=== PATIENT | female | born 1950 ===

== ENCOUNTER 2016-11-29 10:49 | Observation (INO) | payer MEDICARE, OTHER ==
[2016-11-29 10:50] VITALS: BMI 30.4
[2016-11-29] MEDS ORDERED: Nitroglycerin 50mg in D5W 50 MG/250 ML BOTTLE IV STA (11:06)
--- NOTE | 2016-11-29 11:06 | C.PDOC ---
History Of Present Illness <Abbey Rizvi - Last Filed: 11/29/16 13:16> <Addie Anaya - Last Filed: 11/30/16 13:55> 66-year-old female, PMHx includes ESRD, last HD 11/27, presents to the emergency department with complaints of respiratory distress. As per EMS, patient was found to be in respiratory distress w/ rales. Patient s/p CPAP, NG paste and NG sprays, now appears much better. Patient states she feels better. Son states "normal amount was removed" during last dialysis. Patient has intermittent shortness of breath, "only in the morning." Patient saw PMD for same. Started ZPAK x1 dose yesterday, and increased dose of Isosorbide. This morning w/ shortness of breath that was worse than before. No fever. LIMITED DUE TO CLIN COND PER EMS, PT FOUND RESP DISTRESS, +RALES. S/P CPAP, NG PASTE AND NG SPRAYS NOW APPEARS MUCH BETTER. PS FEELS BETTER. HO ESRD, LAST HD 11/27, SON STATES "NORMAL AMOUNT WAS REMOVED". HAS BEEN W INTERMIT SOB "ONLY IN MORNING", SAW PMD FOR SAME. STARTED ZPAK X 1 DOSE YEST, INCR DOSE ISOSORBIDE. THIS MORNING W WORSE THAN BEFORE SOB. NO FEVER. ROS LIMITED EXAM MOD DIST NONTOXIC BIPAP IN PROGRESS LUNGS B/L RALES W TACHYPNEA, UNABLE TO SPEAK DUE OT SOB. CV RRR WARM DRY NEURO AO3, APPROPRIATE, INTERACTIVE. (Abbey Rizvi) History Per: EMS, Family History/Exam Limitations: clinical condition Current Symptoms Are (Timing): Still Present <Abbey Rizvi - Last Filed: 11/29/16 13:16> <Addie Anaya - Last Filed: 11/30/16 13:55> Chief Complaint (Nursing): Respiratory Distress Past Medical History Reviewed: Historical Data, Nursing Documentation, Vital Signs - Medical History PMH: HTN, Hypercholesterolemia, End Stage Renal Disease Family History: States: Unknown Family Hx - Social History Hx Tobacco Use: No Hx Alcohol Use: No Hx Substance Use: No - Immunization History Hx Tetanus Toxoid Vaccination: Yes Hx Influenza Vaccination: Yes Hx Pneumococcal Vaccination: Yes <Abbey Rizvi - Last Filed: 11/29/16 13:16> Review Of Systems Review Of Systems: ROS cannot be obtained secondary to pt's inabilty to answer questions. (respiratory distress) <Abbey Rizvi - Last Filed: 11/29/16 13:16> Physical Exam - Physical Exam Appears: Non-toxic, Other (MOD DIST: BIPAP IN PROGRESS) Skin: Warm, Dry, No Rash Head: Atraumatic, Normacephalic Eye(s): bilateral: Normal Inspection Nose: Normal Oral Mucosa: Moist Lips: Normal Appearing Neck: Normal ROM Cardiovascular: Rhythm Regular, No Murmur Respiratory: Rales ((+) tachypnea), Other (unable to speak due to shortness of breath) Extremity: Normal ROM Neurological/Psych: Oriented x3 (appropriate, interactive) <Abbey Rizvi - Last Filed: 11/29/16 13:16> ED Course And Treatment - Laboratory Results Result Diagrams: 11/29/16 11:10 11/29/16 11:10 ECG: Interpreted By [place] ECG Rhythm: Sinus Rhythm ECG Interpretation: Normal, No Acute Changes Rate From EC O2 Sat by Pulse Oximetry: 100 Pulse Ox Interpretation: Normal - Radiology CXR: Interpreted by Me CXR Interpretation: Yes: Other (CHF) <Abbey Rizvi - Last Filed: 11/29/16 13:16> - Laboratory Results Result Diagrams: 11/29/16 11:10 11/29/16 11:10 <Addie Anaya - Last Filed: 11/30/16 13:55> Progress - Data Reviewed Data Reviewed: Lab, Diagnostic imaging, EKG, Old records - Critical Care Citical Care: Excluding Proc Time Critical Care Time: 120 minutes - Continuity of Care Discussed patient case with:: Patient, Family-HIPPA compliant, PMD <Abbey Rizvi - Last Filed: 11/29/16 13:16> <Addie Anaya - Last Filed: 11/30/16 13:55> - Re-Evaluation Re-evaluation Note: 11/29/16 12:26 PT MUCH IMPROVED. TOLERATING OFF TRIDAL DRIP D/W DR Donnie BARTLETT , WILL ARRANGE FOR EMERGENT HD (Abeby Rizvi) Disposition Counseled Patient/Family Regarding: Studies Performed, Diagnosis - Disposition Disposition Time: 12:28 - POA Present On Arrival: None <Abbey Rizvi - Last Filed: 11/29/16 13:16> <Addie Anaya - Last Filed: 11/30/16 13:55> - Disposition Disposition: HOSPITALIZED Condition: STABLE - Clinical Impression Clinical Impression: CHF (congestive heart failure), ESRD (end stage renal disease) on dialysis, Respiratory distress - Scribe Statement The provider has reviewed the documentation as recorded by the Scribe <Abbey Rizvi - Last Filed: 11/29/16 13:16> <Addie Anaya - Last Filed: 11/30/16 13:55> - Scribe Statement Biju Alvarez All medical record entries made by the Scribe were at my direction and personally dictated by me. I have reviewed the chart and agree that the record accurately reflects my personal performance of the history, physical exam, medical decision making, and the department course for this patient. I have also personally directed, reviewed, and agree with the discharge instructions and disposition. (Abbey Rizvi) Decision To Admit - Pt Status Changed To: Hospital Disposition Of: Observation - . Bed Request Type: Telemetry Admitting Physician: Ed Bartlett <Abbey Rizvi - Last Filed: 11/29/16 13:16> <Addie Anaya - Last Filed: 11/30/16 13:55> - . Patient Diagnosis: CHF (congestive heart failure), ESRD (end stage renal disease) on dialysis, Respiratory distress Addendum <Abbey Rizvi - Last Filed: 11/29/16 13:16> <Addie Anaya - Last Filed: 11/30/16 13:55> Addendum: 11/30/16 13:54 CXR was placed to PA review folder. Accession No. : [id number] Patient Name / ID : ROSALINO OSEGUERA / [id number] Exam Date : 11/29/2016 11:05:26 ( Approved ) Study Comment : Sex / Age : F / 66Y Creator : Rubén Martell MD Dictator : Rubén Martell MD Analysis Internship : Towel Folder : Rubén Martell MD Approver2 : Report Date : 11/29/2016 12:10:06 My Comment : PROCEDURE: CHEST RADIOGRAPH, 1 VIEW HISTORY: Shortness of breath COMPARISON: 02/19/2016 FINDINGS: LUNGS: Moderate to severe venous congestion with prominent bibasilar airspace opacities and small to moderate loculated right pleural effusion. PLEURA: As above. CARDIOVASCULAR: Cardiomegaly. OSSEOUS STRUCTURES: No significant abnormalities. VISUALIZED UPPER ABDOMEN: Normal. OTHER FINDINGS: Question external tubing projecting over the distal left clavicle. IMPRESSION: Moderate to severe venous congestion with prominent bibasilar airspace opacities and small to moderate loculated right pleural effusion. Patient was admitted to the hospital. No actions required from ED at this point. (Addie Anaya)
[2016-11-29 11:28] LABS: VENOUS BLOOD GAS BASE EXCESS 8.2 mmol/L (0.0-2.0); VENOUS BLOOD GAS PCO2 62 mmHg (40-60); VENOUS BLOOD PH 7.37 (7.32-7.43)
[2016-11-29 11:34] LABS: EOS # 0.1 K/uL (0.0-0.7); HEMATOCRIT 30.2 % (34.0-47.0); LYMPH # 0.7 K/uL (1.0-4.3); MEAN CELL VOLUME 85.2 fL (81.0-99.0); MONO # 0.4 K/uL (0.0-0.8); POTASSIUM 4.4 mmol/L (3.6-5.2)
[2016-11-29 11:37] LABS: ALB/GLOB RATIO 1.2 (1.0-2.1); BILIRUBIN,TOTAL 1.4 mg/dL (0.2-1.3); TOTAL PROTEIN 7.4 g/dL (6.3-8.3)
[2016-11-29 11:42] LABS: BASO % 0.3 % (0.0-2.0); EOS % 1.6 % (0.0-4.0); LYMPH % 7.8 % (20.0-40.0); MEAN CORPUSCULAR HEMOGLOBIN 27.3 pg (27.0-31.0); MEAN PLATELET VOLUME 9.5 fL (7.2-11.7); MONO % 4.1 % (0.0-10.0); RED CELL DISTRIBUTION WIDTH 18.4 % (11.5-14.5); WHITE BLOOD COUNT 8.9 K/uL (4.8-10.8)
[2016-11-29 11:49] LABS: TROPONIN I 0.049 ng/mL (0.00-0.120)
[2016-11-29 11:50] LABS: PLATELET COUNT 123 K/uL (130-400)
[2016-11-29 12:06] LABS: NEUTROPHIL 89 % (50-75); TOTAL CELLS COUNTED 100
[2016-11-29 12:07] LABS: LARGE PLATELETS PRESENT
[2016-11-29] MEDS ORDERED: Nitroglycerin 50mg in D5W 0 MG/0 ML BOTTLE IV ONE (12:10)
--- NOTE | 2016-11-29 12:12 | RAD ---
PROCEDURE: CHEST RADIOGRAPH, 1 VIEW HISTORY: Shortness of breath COMPARISON: 02/19/2016 FINDINGS: LUNGS: Moderate to severe venous congestion with prominent bibasilar airspace opacities and small to moderate loculated right pleural effusion. PLEURA: As above. CARDIOVASCULAR: Cardiomegaly. OSSEOUS STRUCTURES: No significant abnormalities. VISUALIZED UPPER ABDOMEN: Normal. OTHER FINDINGS: Question external tubing projecting over the distal left clavicle. IMPRESSION: Moderate to severe venous congestion with prominent bibasilar airspace opacities and small to moderate loculated right pleural effusion.
[2016-11-29] MEDS ORDERED: Albuterol-Ipratrop 3 mg / 0.5 (3 ml) UD ONE (16:13)
[2016-11-29] MEDS ORDERED: Albuterol-Ipratrop 3 mg / 0.5 (3 ml) UD INH STA (16:13)
[2016-11-29] MEDS ORDERED: Moxifloxacin IV 400mg/250ml NS 400 MG/250 ML BAG IVPB STA (17:28)
--- NOTE | 2016-11-29 17:32 | CP.PCM.HP ---
History of Present Illness - History of Present Illness History of Present Illness: 66-year-old female patient with a past medical history of hypertension, hypercholesterolemia, end-stage renal disease, last HD on 11/27, who presented to the ED with complaint of respiratory status. As per EMS, patient was found to be in respiratory distress with rales. Patient S/P CPAP, NG placed and NG sprays, now appear much better. Patient states she feels better. Son states normal amount was removed during last dialysis. Patient has intermittent shortness of breath, "only in the morning". Patient saw PMD for same, started ZPAK x1 dose yesterday, and increased dose of isosorbide. This morning with shortness of breath that was worse than before. Denies fever Present on Admission - Present on Admission Any Indicators Present on Admission: No Past Patient History - Infectious Disease Hx of Infectious Diseases: None - Past Medical History & Family History Past Medical History?: Yes - Past Social History Smoking Status: Never Smoked - CARDIAC Hx Hypercholesterolemia: Yes Hx Hypertension: Yes - RENAL Type of Dialysis Access: left AV shunt Date of Last Dialysis Treatment: 11/27/16 Hx Renal Failure: Yes (ESRD on HD) - HEMATOLOGICAL/ONCOLOGICAL Hx Blood Transfusions: Yes - MUSCULOSKELETAL/RHEUMATOLOGICAL Hx Falls: Yes (unstable) - GENITOURINARY/GYNECOLOGICAL Other/Comment: hd - PSYCHIATRIC Hx Substance Use: No - SURGICAL HISTORY Hx Surgeries: Yes Hx Kidney Transplant: Yes Other/Comment: KIDNEY TRANSPLANT. LEFT ARM AV SHUNT - ANESTHESIA Hx Anesthesia: Yes Hx Anesthesia Reactions: No Hx Malignant Hyperthermia: No Meds Home Medications: Home Medication List Medication Instructions Recorded Confirmed Type Furosemide [Lasix] 80 mg PO DAILY #30 tab 12/01/16 Rx hydrALAZINE [Apresoline] 25 mg PO Q8 #90 tab 12/01/16 Rx Allergies/Adverse Reactions: Allergies Allergy/AdvReac Type Severity Reaction Status Date / Time Penicillins Allergy Severe RASH Verified 02/19/16 01:11 Physical Exam - Constitutional Appears: Well - Head Exam Head Exam: ATRAUMATIC, NORMAL INSPECTION, NORMOCEPHALIC - Eye Exam Eye Exam: EOMI, Normal appearance, PERRL Pupil Exam: NORMAL ACCOMODATION, PERRL - ENT Exam ENT Exam: Mucous Membranes Moist, Normal Exam - Neck Exam Neck exam: Positive for: Normal Inspection - Respiratory Exam Respiratory Exam: Decreased Breath Sounds - Cardiovascular Exam Cardiovascular Exam: REGULAR RHYTHM, +S1, +S2 - GI/Abdominal Exam GI & Abdominal Exam: Diminished Bowel Sounds, Soft - Rectal Exam Rectal Exam: Deferred Results - Vital Signs Recent Vital Signs: Last Vital Signs Temp 97.8 F 11/29/16 15:00 Pulse 64 11/29/16 17:04 Resp 17 11/29/16 15:00 BP 142/77 11/29/16 17:04 Pulse Ox 100 11/29/16 17:04 - Labs Result Diagrams: 11/29/16 11:10 11/29/16 11:10 Assessment & Plan (1) CHF (congestive heart failure) Status: Acute Comment: acute on chronic heartfailure (2) ESRD (end stage renal disease) on dialysis Status: Acute (3) Respiratory distress Status: Acute (4) Diabetes Status: Acute (5) End stage renal disease Status: Acute (6) HTN (hypertension) Status: Acute (7) Nausea & vomiting Status: Acute (8) Pneumonia Status: Acute (9) Pulmonary edema Status: Acute (10) Respiratory failure Status: Acute - Assessment and Plan (Free Text) Plan: Consult pulmonology Chest x-ray shows moderate to severe venous congestion with prominent bibasilar airspace opacities Norvasc Coreg Sensipar Pepcid Mucinex Imdur
[2016-11-29] MEDS: guaiFENesin 600 mg ER Tab PO SCH ×2 (18:25→23:46)
[2016-11-30] MEDS: guaiFENesin 600 mg ER Tab PO SCH ×3 (05:32→17:57)
--- NOTE | 2016-11-30 13:55 | CON ---
DATE: 11/30/2016 REQUESTING PHYSICIAN: Dr. Rico Bartlett. HISTORY OF PRESENT ILLNESS: This is a 66-year-old [place] female with history of end-stage renal dis ease, on hemodialysis 3 times a week, was found to be in respiratory distress, came to the Emergency Room, where she was found to be in pulmonary edema. The patient was subsequently admitted. Denies a ny chest pains. The patient has a longstanding history of hypertension and chronic kidney disease. About more than 15 years ago, she had a renal transplant done which lasted for about 10 years and sub sequently had failed. For past 5-7 years, she is on hemodialysis. MEDICATIONS AT HOME: Include Coreg 3.125 twice a day, Imdur, Norvasc 10 mg and Sensipar. PERSONAL HISTORY: Does not smoke, does not drink. ALLERGIES: PENICILLIN. FAMILY HISTORY: Positive for hypertension. PAST MEDICAL HISTORY: History of renal transplant. REVIEW OF SYSTEMS: Generalized weakness, is essentially home-ridden, but walks around with a lot of support. No fever. No chills. Nonproductive cough, wheezing. Poor vision in both eyes. No hemopt ysis. Shortness of breath at rest. No chest pains. Sleeps on 2-3 pillows. Occasional ankle edema. No abdominal pain. No hematemesis. No melena. Joint pains including hip and knees. No history o f TIAs or CVAs. No history of depression. No hematuria. PHYSICAL EXAMINATION: GENERAL: Shows a middle-aged female, looking older than her stated age, in mild respiratory distress . VITAL SIGNS: Her blood pressure is 150/78, heart rate of 66 and regular, respiratory rate of 24, tem perature of 98.6, O2 sat is 97% on 2 L by nasal cannula. HEAD: Normocephalic. EYES: No pallor, no icterus. MOUTH: Partial upper and lower dentures. NECK: Supple. thyroid enlargement is noted. No carotid bruits. LUNGS: Bibasilar rales and diffuse inspiratory and expiratory wheeze. HEART: Sounds are distant, but no definite gallops or murmurs. ABDOMEN: Soft, nontender. Healed surgical scar of previous renal transplant is noted. Abdomen is soft otherwise. EXTREMITIES: No cyanosis, clubbing or edema. Distal pulses are intact. NEUROLOGIC: Awake, alert, oriented x 3. PSYCHIATRIC: Appears mildly depressed. LABORATORY DATA: BUN is 37, creatinine is 6.2. CBC is acceptable. Chest x-ray shows congestive heart failure. EKG sinus rhythm, otherwise unremarkable. ASSESSMENT: This is a 66-year-old female with history of chronic kidney disease, status post renal t ransplant and hypertension, who has presented with congestive heart failure. PLAN: Continue with aggressive hemodialysis. We will repeat echocardiogram with Doppler studies to evaluate for any occult valvular heart disease and check LV size and function. Care of plan was expl ained to the patient. I thank you. We will follow as needed. James Claros MD cc: [id number] TT: 11/30/2016 13:54:28 Confirmation # [id number] Dictation # [id number] rachel
--- NOTE | 2016-11-30 14:00 | CARD ---
APPROVED REPORT EKG Measurement Heart [id number] <Conclusion> Normal sinus rhythm Normal ECG
--- NOTE | 2016-11-30 14:10 | CP.PCM.CON ---
Past Patient History - Infectious Disease Hx of Infectious Diseases: None - Past Medical History & Family History Past Medical History?: Yes - Past Social History Smoking Status: Never Smoked - CARDIAC Hx Cardiac Disorders: Yes Hx Hypercholesterolemia: Yes Hx Hypertension: Yes - PULMONARY Hx Respiratory Disorders: No - NEUROLOGICAL Hx Neurological Disorder: No - HEENT Hx HEENT Problems: No - RENAL Type of Dialysis Access: left AV shunt Date of Last Dialysis Treatment: 11/27/16 Hx Renal Failure: Yes (ESRD on HD) - ENDOCRINE/METABOLIC Hx Endocrine Disorders: No - HEMATOLOGICAL/ONCOLOGICAL Hx Blood Transfusions: Yes - INTEGUMENTARY Hx Dermatological Problems: No - MUSCULOSKELETAL/RHEUMATOLOGICAL Hx Musculoskeletal Disorders: Yes Hx Falls: Yes (unstable) - GASTROINTESTINAL Hx Gastrointestinal Disorders: No - GENITOURINARY/GYNECOLOGICAL Hx Genitourinary Disorders: No Other/Comment: hd - PSYCHIATRIC Hx Psychophysiologic Disorder: No Hx Substance Use: No - SURGICAL HISTORY Hx Surgeries: Yes Hx Kidney Transplant: Yes Other/Comment: KIDNEY TRANSPLANT. LEFT ARM AV SHUNT - ANESTHESIA Hx Anesthesia: Yes Hx Anesthesia Reactions: No Hx Malignant Hyperthermia: No Meds Allergies/Adverse Reactions: Allergies Allergy/AdvReac Type Severity Reaction Status Date / Time Penicillins Allergy Severe RASH Verified 02/19/16 01:11 - Medications Medications: Current Medications Amlodipine Besylate (Norvasc) 10 mg PO DAILY [facility] Last Admin: 11/30/16 09:18 Dose: 10 mg Carvedilol (Coreg) 3.125 mg PO BID [facility] Last Admin: 11/30/16 09:18 Dose: 3.125 mg Cinacalcet (Sensipar) 60 mg PO DAILY [facility] Last Admin: 11/30/16 09:18 Dose: 60 mg Famotidine (Pepcid) 20 mg PO DAILY [facility] Last Admin: 11/30/16 09:18 Dose: 20 mg Guaifenesin (Mucinex La) 600 mg PO Q6 [facility] Last Admin: 11/30/16 11:36 Dose: 600 mg Isosorbide Mononitrate (Imdur) 120 mg PO DAILY [facility] Last Admin: 11/30/16 09:18 Dose: 120 mg Sevelamer Carbonate (Renvela) 800 mg PO BID [facility] Last Admin: 11/30/16 09:18 Dose: 800 mg Results - Vital Signs Recent Vital Signs: Last Vital Signs Temp 98 F 11/30/16 13:40 Pulse 68 11/30/16 13:40 Resp 18 11/30/16 13:40 BP 120/70 11/30/16 13:40 Pulse Ox 97 11/30/16 07:25 - Labs Result Diagrams: 11/29/16 11:10 11/29/16 11:10
--- NOTE | 2016-11-30 18:21 | CP.PCM.PN ---
Subjective - Date & Time of Evaluation Date of Evaluation: 11/30/16 Time of Evaluation: 12:00 - Subjective Subjective: clinically same Objective - Vital Signs/Intake and Output Vital Signs (last 24 hours): Temp Pulse Resp BP Pulse Ox 98 F 62 96 H 123/65 96 11/30/16 13:45 11/30/16 16:45 11/30/16 16:45 11/30/16 16:45 11/30/16 13:45 Intake and Output: 11/30/16 11/30/16 06:59 18:59 Intake Total 110 Balance 110 - Medications Medications: Current Medications Amlodipine Besylate (Norvasc) 10 mg PO DAILY [facility] Last Admin: 11/30/16 09:18 Dose: 10 mg Carvedilol (Coreg) 3.125 mg PO BID [facility] Last Admin: 11/30/16 09:18 Dose: 3.125 mg Cinacalcet (Sensipar) 60 mg PO DAILY [facility] Last Admin: 11/30/16 09:18 Dose: 60 mg Famotidine (Pepcid) 20 mg PO DAILY [facility] Last Admin: 11/30/16 09:18 Dose: 20 mg Guaifenesin (Mucinex La) 600 mg PO Q6 [facility] Last Admin: 11/30/16 17:57 Dose: 600 mg Isosorbide Mononitrate (Imdur) 120 mg PO DAILY [facility] Last Admin: 11/30/16 09:18 Dose: 120 mg Sevelamer Carbonate (Renvela) 800 mg PO BID [facility] Last Admin: 11/30/16 17:57 Dose: 800 mg - Constitutional Appears: Well - Head Exam Head Exam: ATRAUMATIC, NORMAL INSPECTION, NORMOCEPHALIC - Eye Exam Eye Exam: EOMI, Normal appearance, PERRL Pupil Exam: NORMAL ACCOMODATION, PERRL - ENT Exam ENT Exam: Mucous Membranes Moist, Normal Exam - Neck Exam Neck Exam: Full ROM, Normal Inspection. absent: Lymphadenopathy - Respiratory Exam Respiratory Exam: Decreased Breath Sounds - Cardiovascular Exam Cardiovascular Exam: REGULAR RHYTHM, +S1, +S2 - GI/Abdominal Exam GI & Abdominal Exam: Soft, Diminished Bowel Sounds - Rectal Exam Rectal Exam: Deferred Assessment and Plan (1) CHF (congestive heart failure) Status: Acute (2) ESRD (end stage renal disease) on dialysis Status: Acute (3) Respiratory distress Status: Acute (4) Diabetes Status: Acute (5) End stage renal disease Status: Acute (6) HTN (hypertension) Status: Acute (7) Nausea & vomiting Status: Acute (8) Pneumonia Status: Acute (9) Pulmonary edema Status: Acute (10) Respiratory failure Status: Acute - Assessment and Plan (Free Text) Plan: Consult pulmonology Chest x-ray shows moderate to severe venous congestion with prominent bibasilar airspace opacities Norvasc Coreg Sensipar Pepcid Mucinex Imdur
[2016-12-01] MEDS: guaiFENesin 600 mg ER Tab PO SCH ×3 (00:46→11:58)
[2016-12-01 01:25] VITALS: RESP 20
--- NOTE | 2016-12-01 12:05 | CP.PCM.PN ---
Subjective - Date & Time of Evaluation Date of Evaluation: 12/01/16 Time of Evaluation: 12:03 - Subjective Subjective: sob Objective - Vital Signs/Intake and Output Vital Signs (last 24 hours): Temp Pulse Resp BP Pulse Ox 98.2 F 61 20 125/69 100 12/01/16 08:06 12/01/16 08:06 12/01/16 08:06 12/01/16 08:06 12/01/16 08:06 Intake and Output: 12/01/16 12/01/16 06:59 18:59 Intake Total 150 Balance 150 - Medications Medications: Current Medications Amlodipine Besylate (Norvasc) 10 mg PO DAILY [facility] Last Admin: 12/01/16 09:26 Dose: 10 mg Carvedilol (Coreg) 3.125 mg PO BID [facility] Last Admin: 12/01/16 09:25 Dose: 3.125 mg Cinacalcet (Sensipar) 60 mg PO DAILY [facility] Last Admin: 12/01/16 09:25 Dose: 60 mg Famotidine (Pepcid) 20 mg PO DAILY [facility] Last Admin: 12/01/16 09:25 Dose: 20 mg Guaifenesin (Mucinex La) 600 mg PO Q6 [facility] Last Admin: 12/01/16 11:58 Dose: 600 mg Isosorbide Mononitrate (Imdur) 120 mg PO DAILY [facility] Last Admin: 12/01/16 09:26 Dose: 120 mg Sevelamer Carbonate (Renvela) 800 mg PO BID [facility] Last Admin: 12/01/16 09:25 Dose: 800 mg - Constitutional Appears: Chronically Ill - Head Exam Head Exam: NORMOCEPHALIC - Neck Exam Neck Exam: Normal Inspection - Respiratory Exam Respiratory Exam: Rhonchi, Wheezes - Cardiovascular Exam Cardiovascular Exam: REGULAR RHYTHM - GI/Abdominal Exam GI & Abdominal Exam: Soft - Extremities Exam Extremities Exam: absent: Pedal Edema - Neurological Exam Neurological Exam: Alert, Oriented x3 Assessment and Plan - Assessment and Plan (Free Text) Assessment: echo reviewed by me. normal lv & rv systolic function. severe pulmonary hypertension.pulmonary systolic pressures of more than 70 mm of hg. consider pulmonary eval.
--- NOTE | 2016-12-01 13:06 | CP.PCM.PN ---
Subjective - Date & Time of Evaluation Date of Evaluation: 12/01/16 Time of Evaluation: 12:00 - Subjective Subjective: clinically same Objective - Vital Signs/Intake and Output Vital Signs (last 24 hours): Temp Pulse Resp BP Pulse Ox 98.2 F 61 20 125/69 100 12/01/16 08:06 12/01/16 08:06 12/01/16 08:06 12/01/16 08:06 12/01/16 08:06 Intake and Output: 12/01/16 12/01/16 06:59 18:59 Intake Total 150 Balance 150 - Medications Medications: Current Medications Albuterol/Ipratropium (Duoneb 3 Mg/0.5 Mg (3 Ml) Ud) 3 ml INH RQ6 [facility] Amlodipine Besylate (Norvasc) 10 mg PO DAILY [facility] Last Admin: 12/01/16 09:26 Dose: 10 mg Carvedilol (Coreg) 3.125 mg PO BID [facility] Last Admin: 12/01/16 09:25 Dose: 3.125 mg Cinacalcet (Sensipar) 60 mg PO DAILY [facility] Last Admin: 12/01/16 09:25 Dose: 60 mg Famotidine (Pepcid) 20 mg PO DAILY [facility] Last Admin: 12/01/16 09:25 Dose: 20 mg Guaifenesin (Mucinex La) 600 mg PO Q6 [facility] Last Admin: 12/01/16 11:58 Dose: 600 mg Isosorbide Mononitrate (Imdur) 120 mg PO DAILY [facility] Last Admin: 12/01/16 09:26 Dose: 120 mg Sevelamer Carbonate (Renvela) 800 mg PO BID [facility] Last Admin: 12/01/16 09:25 Dose: 800 mg - Constitutional Appears: Well - Head Exam Head Exam: ATRAUMATIC, NORMAL INSPECTION, NORMOCEPHALIC - Eye Exam Eye Exam: EOMI, Normal appearance, PERRL Pupil Exam: NORMAL ACCOMODATION, PERRL - ENT Exam ENT Exam: Mucous Membranes Moist, Normal Exam - Neck Exam Neck Exam: Full ROM, Normal Inspection. absent: Lymphadenopathy - Respiratory Exam Respiratory Exam: Decreased Breath Sounds - Cardiovascular Exam Cardiovascular Exam: REGULAR RHYTHM, +S1, +S2 - GI/Abdominal Exam GI & Abdominal Exam: Soft, Diminished Bowel Sounds - Rectal Exam Rectal Exam: Deferred Assessment and Plan (1) CHF (congestive heart failure) Status: Acute (2) ESRD (end stage renal disease) on dialysis Status: Acute (3) Respiratory distress Status: Acute (4) Diabetes Status: Acute (5) End stage renal disease Status: Acute (6) HTN (hypertension) Status: Acute (7) Nausea & vomiting Status: Acute (8) Pneumonia Status: Acute (9) Pulmonary edema Status: Acute (10) Respiratory failure Status: Acute - Assessment and Plan (Free Text) Plan: S/P HD Patient can be discharged today Follow-up as outpatient
--- NOTE | 2016-12-01 13:53 | CP.PCM.PN ---
Subjective - Date & Time of Evaluation Date of Evaluation: 12/01/16 Time of Evaluation: 13:53 - Subjective Subjective: 66 Y/O FEMALE SEEN AND EXAMINED PMHX ESRD, ON HD, ADMITTED FOR SOB EVALUATED BY CARDIO- DR DALEY ECH0- NORMAL LV/RV FUNCTION IMPROVED W/HD RX GIVEN PER DR Rico COSTELLO SAFE FOR OUTPT F/U Objective - Vital Signs/Intake and Output Vital Signs (last 24 hours): Temp Pulse Resp BP Pulse Ox 98.2 F 61 20 125/69 100 12/01/16 08:06 12/01/16 08:06 12/01/16 08:06 12/01/16 08:06 12/01/16 08:06 Intake and Output: 12/01/16 12/01/16 06:59 18:59 Intake Total 150 Balance 150 - Medications Medications: Current Medications Albuterol/Ipratropium (Duoneb 3 Mg/0.5 Mg (3 Ml) Ud) 3 ml INH RQ6 [facility] Last Admin: 12/01/16 13:13 Dose: 3 ml Amlodipine Besylate (Norvasc) 10 mg PO DAILY [facility] Last Admin: 12/01/16 09:26 Dose: 10 mg Carvedilol (Coreg) 3.125 mg PO BID [facility] Last Admin: 12/01/16 09:25 Dose: 3.125 mg Cinacalcet (Sensipar) 60 mg PO DAILY [facility] Last Admin: 12/01/16 09:25 Dose: 60 mg Famotidine (Pepcid) 20 mg PO DAILY [facility] Last Admin: 12/01/16 09:25 Dose: 20 mg Guaifenesin (Mucinex La) 600 mg PO Q6 [facility] Last Admin: 12/01/16 11:58 Dose: 600 mg Isosorbide Mononitrate (Imdur) 120 mg PO DAILY [facility] Last Admin: 12/01/16 09:26 Dose: 120 mg Sevelamer Carbonate (Renvela) 800 mg PO BID [facility] Last Admin: 12/01/16 09:25 Dose: 800 mg
--- NOTE | 2016-12-01 13:53 | PCM.HF ---
Heart Failure Core Measure - Heart Failure Ejection Fraction: 40 % or Greater (LVEF 69%) Left Ventricular Function to be assessed after discharge: Yes MARTA Inhibitor Prescribed: No Contraindication/Reason for not providing: ESRD Beta-Behzad Prescribed: Carvedilol Angiotensin II Receptor Behzad Prescribed: No Contraindication/Reason for not providing: ESRD AnticoagulationTherapy for Atrial Fibrillation/Atrialflutter: No Contraindication/Reason for not providing: NO AFIB Aldosterone Antagonist Prescribed: No Contraindication/Reason for not providing: NOT INDICATED Hydralazine Nitrate Prescribed: No Contraindication/Reason for not providing: NOT INDICATED Implantable Cardioverter Defibrillator Therapy: No Contraindication/Reason for not providing: NOT INDICATED Cardiac Resynchronization Therapy Prescribed: No Contraindication/Reason for not providing: NOT INDICATED - Follow up Will be discharged to: Home Follow Up Date (must be within 7 days from discharge): 12/03/16 Follow Up Time: 09:00
[2016-12-01] MEDS ORDERED: Albuterol-Ipratrop 3 mg / 0.5 (3 ml) UD INH SCH ×2 (14:00→20:00)
--- NOTE | 2016-12-01 15:36 | CP.PCM.PN ---
Subjective - Date & Time of Evaluation Date of Evaluation: 12/01/16 Time of Evaluation: 15:35 - Subjective Subjective: Pt seen and examined Used BiPAP at night Currently wheezing Reports mild dyspnea Objective - Vital Signs/Intake and Output Vital Signs (last 24 hours): Temp Pulse Resp BP Pulse Ox 98.2 F 61 20 125/69 100 12/01/16 08:06 12/01/16 08:06 12/01/16 08:06 12/01/16 08:06 12/01/16 08:06 Intake and Output: 12/01/16 12/01/16 06:59 18:59 Intake Total 150 Balance 150 - Medications Medications: Current Medications Albuterol/Ipratropium (Duoneb 3 Mg/0.5 Mg (3 Ml) Ud) 3 ml INH RQ6 [facility] Last Admin: 12/01/16 13:13 Dose: 3 ml Amlodipine Besylate (Norvasc) 10 mg PO DAILY [facility] Last Admin: 12/01/16 09:26 Dose: 10 mg Carvedilol (Coreg) 3.125 mg PO BID [facility] Last Admin: 12/01/16 09:25 Dose: 3.125 mg Cinacalcet (Sensipar) 60 mg PO DAILY [facility] Last Admin: 12/01/16 09:25 Dose: 60 mg Famotidine (Pepcid) 20 mg PO DAILY [facility] Last Admin: 12/01/16 09:25 Dose: 20 mg Guaifenesin (Mucinex La) 600 mg PO Q6 [facility] Last Admin: 12/01/16 11:58 Dose: 600 mg Isosorbide Mononitrate (Imdur) 120 mg PO DAILY [facility] Last Admin: 12/01/16 09:26 Dose: 120 mg Sevelamer Carbonate (Renvela) 800 mg PO BID [facility] Last Admin: 12/01/16 09:25 Dose: 800 mg - Head Exam Head Exam: NORMAL INSPECTION - Eye Exam Eye Exam: Normal appearance - ENT Exam ENT Exam: Mucous Membranes Moist - Respiratory Exam Respiratory Exam: Clear to Ausculation Bilateral, Prolonged Expiratory Phase, Wheezes - Cardiovascular Exam Cardiovascular Exam: REGULAR RHYTHM - GI/Abdominal Exam GI & Abdominal Exam: Soft, Normal Bowel Sounds - Extremities Exam Extremities Exam: Normal Inspection - Neurological Exam Neurological Exam: Alert, Oriented x3 - Psychiatric Exam Psychiatric exam: Normal Affect, Normal Mood - Skin Skin Exam: Normal Color Assessment and Plan - Assessment and Plan (Free Text) Assessment: COPD Exacerbation CHF ESRD Add IV Steroids Bronchodilators BiPAP at night Add advair 250/50 1 P BID O2 HD as per renal
[2016-12-01 16:22] VITALS: BP 136/64; PULSE 64; TEMP 98.6; O2SAT 94
[2016-12-01] MEDS ORDERED: MethylPREDNISolone 40 mg Vial IV SCH (17:00)
--- NOTE | 2016-12-02 08:39 | CARD ---
APPROVED REPORT EXAM: Two-dimensional and M-mode echocardiogram with Doppler and color Doppler. Other Information Quality : GoodRhythm : NSR INDICATION Congestive Heart Failure ESRD, RESP DIST RISK FACTORS Hypertension Hyperlipidemia Diabetes M-Mode DIMENSIONS RVDd2.69 (2.1-3.2cm)Left Atrium (MM)5.19 (2.5-4.0cm) IVSd1.22 (0.7-1.1cm)Aortic Root2.69 (2.2-3.7cm) LVDd5.75 (4.0-5.6cm)Aortic Cusp Exc.1.72 (1.5-2.0cm) PWd1.18 (0.7-1.1cm)FS (%) 39 % LVDs3.50 (2.0-3.8cm)LVEF (%)69 (>50%) Mitral Valve MV E Bvfaizie948.8cm/sMV A Daqthvow688.5cm/sE/A ratio0.9 TDI E/Lateral E'0.0E/Medial E'0.0 Tricuspid Valve TR Peak Cptsmjlf064jw/sTR Peak Gr.99oqQsUWHM06keWy LEFT VENTRICLE The Left Ventricle is mildly dilated. There is mild to moderate concentric left ventricular hypertrophy. The left ventricular function is normal. The left ventricular ejection fraction is within the normal range. The Ejection Fraction is >55%. No regional wall motion abnormalities noted. The left ventricular diastolic function is normal. No left ventricle thrombus noted on this study. There is no ventricular septal defect visualized. There is no left ventricular aneurysm. There is no mass noted in the left ventricle. RIGHT VENTRICLE The right ventricle is normal size. There is normal right ventricular wall thickness. The right ventricular systolic function is normal. ATRIA The left atrium is severely dilated. The right atrium size is normal. The interatrial septum is intact with no evidence for an atrial septal defect. AORTIC VALVE The aortic valve is normal in structure and function. No aortic regurgitation is present. There is no aortic valvular stenosis. There is no aortic valvular vegetation. MITRAL VALVE The mitral valve is normal in structure and function. There is no evidence of mitral valve prolapse. There is no mitral valve stenosis. There is no mitral valve regurgitation noted. TRICUSPID VALVE The tricuspid valve is normal in structure and function. There is mild to moderate tricuspid regurgitation. Right ventricular systolic pressure is estimated at greater than 60 mmHg. There is severe pulmonary hypertension. There is no tricuspid valve prolapse or vegetation. There is no tricuspid valve stenosis. PULMONIC VALVE The pulmonary valve is normal in structure and function. There is no pulmonic valvular regurgitation. There is no pulmonic valvular stenosis. GREAT VESSELS The aortic root is normal in size. The ascending aorta is normal in size. The pulmonary artery is normal. The IVC is normal in size and collapses >50% with inspiration. PERICARDIAL EFFUSION The pericardium appears normal. There is no pleural effusion. <Conclusion> The Left Ventricle is mildly dilated. There is mild to moderate concentric left ventricular hypertrophy. The left ventricular function is normal. The Ejection Fraction is >55%. The left atrium is severely dilated. Right ventricular systolic pressure is estimated at greater than 60 mmHg. There is severe pulmonary hypertension.
== END 2016-12-01 17:20 | disposition home or self-care (01) ==
LOC: C.ER 10:49 → C.9E 12:29 → C.6T 15:47
PROVIDERS: ADMIT Internal Medicine Nephrology; ATTEND Internal Medicine Nephrology
DX: I13.2 Hypertensive heart and chronic kidney disease with heart failure and with stage 5 chronic kidney disease, or end stage renal disease (principal); I50.9 Heart failure, unspecified; N18.6 End stage renal disease; Z94.0 Kidney transplant status; E78.00 Pure hypercholesterolemia, unspecified; E11.22 Type 2 diabetes mellitus with diabetic chronic kidney disease; Z99.2 Dependence on renal dialysis; J44.1 Chronic obstructive pulmonary disease with (acute) exacerbation
CPT/HCPCS: 71010; 80053; 82803; 83880; 84484; 85025; 87040; 93005; 93306; 94640; 94660; 96365; 97162; 97530; 99284; G0257; G0378; G8978; G8979; J2280; J2920

== ENCOUNTER 2017-12-25 16:00 | Emergency (ER) | payer MEDICARE, OTHER ==
[2017-12-25 16:00] VITALS: BMI 30.4
[2017-12-25 16:40] LABS: BASO % 0.2 % (0.0-2.0); EOS # 0.1 K/uL (0.0-0.7); EOS % 1.7 % (0.0-4.0); HEMOGLOBIN 9.8 g/dL (11.0-16.0); LYMPH # 1.4 K/uL (1.0-4.3); LYMPH % 20.6 % (20.0-40.0); MEAN CELL VOLUME 81.9 fL (81.0-99.0); MEAN CORPUSCULAR HEMOGLOBIN 26.7 pg (27.0-31.0); MEAN CORPUSCULAR HGB CONC 32.7 g/dL (33.0-37.0); MEAN PLATELET VOLUME 9.1 fL (7.2-11.7); MONO # 0.3 K/uL (0.0-0.8); NEUT # 4.8 K/uL (1.8-7.0); NEUT % 72.5 % (50.0-75.0); NRBC % 0.1 % (0.0-2.0); RBC 3.65 Mil/uL (3.80-5.20); RED CELL DISTRIBUTION WIDTH 18.2 % (11.5-14.5); WHITE BLOOD COUNT 6.6 K/uL (4.8-10.8)
[2017-12-25 16:50] LABS: INR 1.1; PROTHROMBIN TIME 11.9 SECONDS (9.7-12.2)
[2017-12-25 16:53] LABS: ALB/GLOB RATIO 1.3 (1.0-2.1); CALCIUM 9.2 mg/dl (8.6-10.4)
--- NOTE | 2017-12-25 17:29 | C.PDOC ---
History Of Present Illness Pt had hemodialysis today. After she got home from dialysis she started bleeding from left arm AV fistula site. Pt arrived to ED with inflated blood pressure cuff on left arm placed by EMS. Time Seen by Provider: 12/25/17 16:16 Chief Complaint (Nursing): Medical Clearance History Per: Patient, EMS, Family Onset/Duration Of Symptoms: Hrs (1) Current Symptoms Are (Timing): Still Present Severity: Moderate Additional History Per: Prior Records Past Medical History Reviewed: Historical Data, Nursing Documentation, Vital Signs Vital Signs: Last Vital Signs Temp Pulse 65 12/25/17 16:03 Resp 14 12/25/17 16:03 BP 170/97 H 12/25/17 16:03 Pulse Ox 93 L 12/25/17 16:03 - Medical History PMH: HTN, Hypercholesterolemia, End Stage Renal Disease (on hemodialysis) - [facility] Procedures ASSISTANCE WITH RESPIRATORY VENTILATION, <24 HRS, CPAP (09/30/15) PERFORMANCE OF URINARY FILTRATION, SINGLE (09/30/15) Family History: States: Unknown Family Hx - Social History Hx Tobacco Use: No Hx Alcohol Use: No Hx Substance Use: No - Immunization History Hx Tetanus Toxoid Vaccination: Yes Hx Influenza Vaccination: Yes Hx Pneumococcal Vaccination: Yes Review Of Systems Except As Marked, All Systems Reviewed And Found Negative. Constitutional: Negative for: Fever Cardiovascular: Negative for: Chest Pain, Light Headedness Respiratory: Negative for: Shortness of Breath Gastrointestinal: Negative for: Vomiting, Abdominal Pain Neurological: Negative for: Weakness Physical Exam - Physical Exam Appears: Chronically Ill Skin: Warm, Dry Head: Atraumatic, Normacephalic Eye(s): bilateral: PERRL, EOMI Cardiovascular: Rhythm Regular Respiratory: Normal Breath Sounds, No Accessory Muscle Use Gastrointestinal/Abdominal: Soft, No Tenderness Extremity: Normal ROM, Other (Left has dialysis fistula with good thrill. There is dry blood, but no active bleeding present now.) Neurological/Psych: Oriented x3, Normal Motor, Normal Sensation ED Course And Treatment - Laboratory Results Result Diagrams: 12/25/17 16:37 12/25/17 16:37 Lab Interpretation: No Changes Compared To Prior Results O2 Sat by Pulse Oximetry: 95 Pulse Ox Interpretation: Normal Progress Note: Pressure dressing was applied to left arm. No bleeding during ED visit. Reassessment Condition: Improved Disposition Counseled Patient/Family Regarding: Studies Performed, Diagnosis, Need For Followup - Disposition Referrals: Ed Bartlett MD [Staff Provider] - Disposition: HOME/ ROUTINE Disposition Time: 17:31 Condition: IMPROVED Additional Instructions: Follow up with your doctor. Return to the ER if you develop bleeding, pain, weakness, numbness, worsening of symptoms or if you have any other concerns. Instructions: Arteriovenous Fistula for Dialysis (DC) Forms: [facility] (Syriac), General Discharge Instructions - Clinical Impression Clinical Impression: Bleeding from dialysis shunt
[2017-12-25 17:41] VITALS: BP 170/91; PULSE 78; RESP 18; TEMP 98.2; O2SAT 94
== END 2017-12-25 17:39 | disposition home or self-care (01) ==
LOC: C.ER 16:00
DX: T82.838A Hemorrhage due to vascular prosthetic devices, implants and grafts, initial encounter (principal); Y84.1 Kidney dialysis as the cause of abnormal reaction of the patient, or of later complication, without mention of misadventure at the time of the procedure

== ENCOUNTER 2018-01-11 09:23 | Inpatient (IN) | payer MEDICARE, OTHER ==
[2018-01-11 09:23] VITALS: BMI 30.4
--- NOTE | 2018-01-11 10:18 | C.PDOC ---
History Of Present Illness Patient VALENTINO from home for evaluation of SOB since yesterday. As per EMS and son, she has been SOB since yesterday, worse with laying flat. Patient is scheduled to have HD today, but was too SOB so 911 was called. Patient placed on Bipap and given neb treatment in the field. She denies chest pain, abdominal pain, nausea/vomiting, fever, cough, palpitations. Time Seen by Provider: 01/11/18 09:29 Chief Complaint (Nursing): Shortness Of Breath History Per: Patient, EMS, Family History/Exam Limitations: clinical condition Onset/Duration Of Symptoms: Days (2) Current Symptoms Are (Timing): Still Present Exacerbating Factor(s): Laying Flat Current Respiratory Medications: See Home Med List Severity: Moderate Past Medical History Reviewed: Historical Data, Nursing Documentation, Vital Signs Vital Signs: Last Vital Signs Temp 97.9 F 01/13/18 07:27 Pulse 57 L 01/13/18 12:00 Resp 20 01/13/18 07:27 BP 132/66 01/13/18 07:27 Pulse Ox 100 01/13/18 13:18 - Medical History PMH: HTN, Hypercholesterolemia, End Stage Renal Disease (on hemodialysis) - [employer] [facility] Procedures ASSISTANCE WITH RESPIRATORY VENTILATION, <24 HRS, CPAP (09/30/15) PERFORMANCE OF URINARY FILTRATION, SINGLE (09/30/15) Family History: States: No Known Family Hx - Social History Hx Tobacco Use: No Hx Alcohol Use: No Hx Substance Use: No - Immunization History Hx Tetanus Toxoid Vaccination: Yes Hx Influenza Vaccination: Yes Hx Pneumococcal Vaccination: Yes Review Of Systems Constitutional: Negative for: Fever, Chills Cardiovascular: Positive for: Orthopnea. Negative for: Chest Pain, Palpitations Respiratory: Positive for: Shortness of Breath, Wheezing. Negative for: Cough Gastrointestinal: Negative for: Nausea, Vomiting, Abdominal Pain Skin: Negative for: Rash Physical Exam - Physical Exam Appears: Well, Non-toxic, In Acute Distress (in mild respiratory distress) Head: Normacephalic Eye(s): bilateral: Normal Inspection Oral Mucosa: Moist Neck: Supple Cardiovascular: Rhythm Regular Respiratory: Accessory Muscle Use (mild), Rales (diffuse rales B/L ), No Rhonchi , No Wheezing Gastrointestinal/Abdominal: Normal Exam, Bowel Sounds, Soft, No Tenderness Extremity: Pedal Edema (trace pitting edema B/L LEs), Other (AV fistula left arm , palpable thrill) Pulses: Left Dorsalis Pedis: Normal, Right Dorsalis Pedis: Normal Neurological/Psych: Oriented x3 ED Course And Treatment - Laboratory Results Result Diagrams: 01/12/18 07:38 01/12/18 07:38 ECG: Interpreted By Me, Viewed By Me ECG Rhythm: Sinus Rhythm ECG Interpretation: No Acute Changes (no peaked T waves, no acute ST changes) O2 Sat by Pulse Oximetry: 100 (BiPAP) Pulse Ox Interpretation: Normal - Other Rad CXR X-Ray: Viewed By Me, Read By Radiologist Interpretation: Accession No. : [id number]. Patient Name / ID : ROSALINO DESHPANDE / [id number]. Exam Date : 01/11/2018 09:36:57 ( Approved ). Study Comment : Sex / Age : F / 67Y. Creator : Kai Patterson MD. Dictator : Kai Patterson MD. Decommissioning Well Site Manager : Clarifier Operator : Kai Patterson MD. Approver2 : Report Date : 01/11/2018 11:10:06. My Comment : . PROCEDURE: CHEST RADIOGRAPH, 1 VIEW. HISTORY: SOB. COMPARISON: Chest radiograph dated 11/29/2016. FINDINGS: LUNGS: Pulmonary vascular congestion/ edema. PLEURA: Small right and trace left pleural effusions. No appreciable pneumothorax. CARDIOVASCULAR: Atherosclerotic aortic calcifications. Cardiomediastinal silhouette stably enlarged. OSSEOUS STRUCTURES: Unchanged. VISUALIZED UPPER ABDOMEN: Normal. OTHER FINDINGS: None. IMPRESSION: Pulmonary vascular congestion/ edema with small right and trace left pleural effusions. Progress Note: Blood work, CXR, EKG ordered and reviewed. Discussed patient with her PMDS/multimedia production assistant Dr. Donnie Bartlett, who will have her emergently dialyzed today. Reevaluation Time: 11:15 Reassessment Condition: Improved (Patient clinically improving on Bipap, states she feels better, no current accessory muslce use.) Critical Care Time - Critical Care Note Total Time (in mins): 35 Documented critical care: time excludes all time spent performing seperately billable procedures. Disposition - Disposition Disposition: HOSPITALIZED Disposition Time: 11:37 Condition: STABLE - Clinical Impression Clinical Impression: Fluid overload, ESRD needing dialysis, CHF (congestive heart failure), Dyspnea Decision To Admit - Pt Status Changed To: Hospital Disposition Of: Inpatient - Admit Certification Admit to Inpatient:: After my assessment, the patient will require hospitalization for at least two midnights. This is because of the severity of symptoms shown, intensity of services needed, and/or the medical risk in this patient being treated as an outpatient. - InPatient: Physician Admission Certification: I certify that this patient requires 2 or more midnights of care for the following reason:: see notes - . Bed Request Type: Telemetry Admitting Physician: Ed Bartlett Patient Diagnosis: Fluid overload, Dyspnea, CHF (congestive heart failure), ESRD needing dialysis
[2018-01-11 10:40] LABS: BASO % 0.4 % (0.0-2.0); EOS # 0.1 K/uL (0.0-0.7); EOS % 0.9 % (0.0-4.0); HEMOGLOBIN 8.6 g/dL (11.0-16.0); LYMPH % 16.9 % (20.0-40.0); MEAN CORPUSCULAR HEMOGLOBIN 27.9 pg (27.0-31.0); MEAN CORPUSCULAR HGB CONC 32.6 g/dL (33.0-37.0); MEAN PLATELET VOLUME 9.9 fL (7.2-11.7); MONO # 0.2 K/uL (0.0-0.8); MONO % 3.9 % (0.0-10.0); NEUT # 4.4 K/uL (1.8-7.0); NEUT % 77.9 % (50.0-75.0); NRBC % 0.1 % (0.0-2.0); RBC 3.07 Mil/uL (3.80-5.20); RED CELL DISTRIBUTION WIDTH 18.2 % (11.5-14.5); WHITE BLOOD COUNT 5.7 K/uL (4.8-10.8)
[2018-01-11 10:41] LABS: MEAN CELL VOLUME 85.4 fL (81.0-99.0)
--- NOTE | 2018-01-11 11:11 | RAD ---
PROCEDURE: CHEST RADIOGRAPH, 1 VIEW HISTORY: SOB COMPARISON: Chest radiograph dated 11/29/2016. FINDINGS: LUNGS: Pulmonary vascular congestion/ edema. PLEURA: Small right and trace left pleural effusions. No appreciable pneumothorax. CARDIOVASCULAR: Atherosclerotic aortic calcifications. Cardiomediastinal silhouette stably enlarged. OSSEOUS STRUCTURES: Unchanged. VISUALIZED UPPER ABDOMEN: Normal. OTHER FINDINGS: None. IMPRESSION: Pulmonary vascular congestion/ edema with small right and trace left pleural effusions.
[2018-01-11 11:15] LABS: CK-MB 0.74 ng/mL (0.0-3.38); TROPONIN I 0.033 ng/mL (0.00-0.120)
[2018-01-11 11:25] LABS: ALB/GLOB RATIO 1.3 (1.0-2.1); ALBUMIN 3.9 g/dL (3.5-5.0); CALCIUM 8.6 mg/dl (8.6-10.4)
--- NOTE | 2018-01-11 15:34 | CP.PCM.HP ---
Past Patient History - Infectious Disease Hx of Infectious Diseases: None - Past Medical History & Family History Past Medical History?: Yes - Past Social History Smoking Status: Never Smoked - CARDIAC Hx Hypercholesterolemia: Yes Hx Hypertension: Yes - PULMONARY Hx Respiratory Disorders: No - NEUROLOGICAL Hx Neurological Disorder: No - HEENT Hx HEENT Problems: No - RENAL Other/Comment: H/D tue-laura-sat - ENDOCRINE/METABOLIC Hx Endocrine Disorders: No - HEMATOLOGICAL/ONCOLOGICAL Hx Blood Transfusions: Yes - INTEGUMENTARY Hx Dermatological Problems: No - MUSCULOSKELETAL/RHEUMATOLOGICAL Hx Musculoskeletal Disorders: Yes Hx Falls: Yes (unstable) - GASTROINTESTINAL Hx Gastrointestinal Disorders: No - GENITOURINARY/GYNECOLOGICAL Hx Genitourinary Disorders: No Other/Comment: hd - PSYCHIATRIC Hx Substance Use: No - SURGICAL HISTORY Hx Surgeries: Yes Hx Kidney Transplant: Yes Other/Comment: KIDNEY TRANSPLANT. LEFT ARM AV SHUNT - ANESTHESIA Hx Anesthesia: Yes Hx Anesthesia Reactions: No Hx Malignant Hyperthermia: No Meds Allergies/Adverse Reactions: Allergies Allergy/AdvReac Type Severity Reaction Status Date / Time Penicillins Allergy Severe RASH Verified 01/11/18 11:37 Physical Exam - Constitutional Appears: Well - Head Exam Head Exam: ATRAUMATIC, NORMAL INSPECTION, NORMOCEPHALIC - Eye Exam Eye Exam: EOMI, Normal appearance, PERRL Pupil Exam: NORMAL ACCOMODATION, PERRL - ENT Exam ENT Exam: Mucous Membranes Moist, Normal Exam - Neck Exam Neck exam: Positive for: Normal Inspection - Respiratory Exam Respiratory Exam: Decreased Breath Sounds - Cardiovascular Exam Cardiovascular Exam: REGULAR RHYTHM, +S1, +S2 - GI/Abdominal Exam GI & Abdominal Exam: Diminished Bowel Sounds, Soft - Rectal Exam Rectal Exam: Deferred Results - Vital Signs Recent Vital Signs: Last Vital Signs Temp 97.2 F L 01/11/18 14:45 Pulse 59 L 01/11/18 14:45 Resp 20 01/11/18 14:45 BP 178/95 H 01/11/18 15:00 Pulse Ox 100 01/11/18 14:45 - Labs Result Diagrams: 01/11/18 10:34 01/11/18 10:34 Labs: Laboratory Results - last 24 hr 01/11/18 01/11/18 10:34 10:34 WBC 5.7 RBC 3.07 L Hgb 8.6 L Hct 26.2 L MCV 85.4 D MCH 27.9 MCHC 32.6 L RDW 18.2 H Plt Count 145 MPV 9.9 Neut % (Auto) 77.9 H Lymph % (Auto) 16.9 L Will % (Auto) 3.9 Eos % (Auto) 0.9 Baso % (Auto) 0.4 Neut # (Auto) 4.4 Lymph # (Auto) 1.0 Will # (Auto) 0.2 Eos # (Auto) 0.1 Baso # (Auto) 0.0 Sodium 142 Potassium 4.6 Chloride 99 Carbon Dioxide 29 Anion Gap 18 BUN 31 H Creatinine 7.5 H* D Est GFR ( Amer) 7 Est GFR (Non-Af Amer) 5 Random Glucose 116 H Calcium 8.6 Total Bilirubin 1.1 AST 35 ALT 37 Alkaline Phosphatase 97 Total Creatine Kinase 42 CK-MB (Mass) 0.74 Troponin I 0.0330 NT-Pro-B Natriuret Pep 74444 H Total Protein 7.0 Albumin 3.9 Globulin 3.1 Albumin/Globulin Ratio 1.3
[2018-01-11 15:52] LABS: INR 1.1
[2018-01-11] MEDS: Azithromycin 500 MG in Sodium Chloride 0.9% 250 ML IVPB SCH (21:20)
[2018-01-12 07:53] LABS: BASO % 0.5 % (0.0-2.0); EOS # 0.2 K/uL (0.0-0.7); LYMPH # 1.6 K/uL (1.0-4.3); LYMPH % 31.8 % (20.0-40.0); MEAN CELL VOLUME 85.1 fL (81.0-99.0); MEAN CORPUSCULAR HEMOGLOBIN 27.8 pg (27.0-31.0); MEAN CORPUSCULAR HGB CONC 32.7 g/dL (33.0-37.0); MEAN PLATELET VOLUME 9.8 fL (7.2-11.7); MONO # 0.3 K/uL (0.0-0.8); MONO % 6.5 % (0.0-10.0); NEUT # 2.9 K/uL (1.8-7.0); NEUT % 58.2 % (50.0-75.0); NRBC % 0.1 % (0.0-2.0); RBC 2.87 Mil/uL (3.80-5.20); RED CELL DISTRIBUTION WIDTH 19.1 % (11.5-14.5)
[2018-01-12 08:10] LABS: ALB/GLOB RATIO 1.2 (1.0-2.1); ALBUMIN 3.5 g/dL (3.5-5.0); CALCIUM 8.5 mg/dl (8.6-10.4)
--- NOTE | 2018-01-12 14:17 | CP.PCM.PN ---
Subjective - Date & Time of Evaluation Date of Evaluation: 01/12/18 Time of Evaluation: 08:20 - Subjective Subjective: clinically same Objective - Vital Signs/Intake and Output Vital Signs (last 24 hours): Temp Pulse Resp BP Pulse Ox 97.9 F 58 L 18 148/70 100 01/12/18 07:25 01/12/18 13:41 01/12/18 07:25 01/12/18 13:41 01/12/18 08:33 - Medications Medications: Current Medications Amlodipine Besylate (Norvasc) 10 mg PO DAILY [facility] Last Admin: 01/12/18 10:36 Dose: 10 mg Cinacalcet (Sensipar) 60 mg PO ACD [facility] Last Admin: 01/11/18 22:55 Dose: Not Given Famotidine (Pepcid) 20 mg PO DAILY [facility] Last Admin: 01/12/18 10:36 Dose: 20 mg Furosemide (Lasix) 80 mg PO DAILY [facility] Last Admin: 01/12/18 10:36 Dose: 80 mg Heparin Sodium (Porcine) (Heparin) 5,000 units SC BID [facility] Azithromycin 500 mg/ Sodium (Chloride) 250 mls @ 250 mls/hr IVPB Q24H [facility] PRN Reason: Protocol Last Admin: 01/11/18 21:20 Dose: 250 mls/hr Isosorbide Mononitrate (Imdur) 120 mg PO DAILY [facility] Last Admin: 01/12/18 10:35 Dose: 120 mg - Labs Labs: 01/12/18 07:38 01/12/18 07:38 PT 12.0 SECONDS (9.7-12.2) 01/11/18 15:38 INR 1.1 01/11/18 15:38 APTT 32 SECONDS (21-34) 01/11/18 15:38 - Constitutional Appears: Well - Head Exam Head Exam: ATRAUMATIC, NORMAL INSPECTION, NORMOCEPHALIC - Eye Exam Eye Exam: EOMI, Normal appearance, PERRL Pupil Exam: NORMAL ACCOMODATION, PERRL - ENT Exam ENT Exam: Mucous Membranes Moist, Normal Exam - Neck Exam Neck Exam: Full ROM, Normal Inspection. absent: Lymphadenopathy - Respiratory Exam Respiratory Exam: Decreased Breath Sounds - Cardiovascular Exam Cardiovascular Exam: REGULAR RHYTHM, +S1, +S2 - GI/Abdominal Exam GI & Abdominal Exam: Soft, Diminished Bowel Sounds - Rectal Exam Rectal Exam: Deferred
--- NOTE | 2018-01-12 15:08 | RAD ---
HISTORY: SOB COMPARISON: No prior. TECHNIQUE: Chest PA and lateral FINDINGS: LUNGS: Decreased pulmonary vascular congestion. Bibasilar atelectasis. PLEURA: Decreased size of small/trace residual pleural effusions. No pneumothorax apparent. CARDIOVASCULAR: Atherosclerotic aortic calcifications. Cardiomediastinal silhouette stably enlarged. OSSEOUS STRUCTURES: Unchanged. VISUALIZED UPPER ABDOMEN: Normal. OTHER FINDINGS: None. IMPRESSION: Decreased pulmonary vascular congestion with decreased size of small/trace residual pleural effusions.
--- NOTE | 2018-01-12 16:58 | CP.PCM.CON ---
History of Present Illness - History of Present Illness History of Present Illness: reason for consultation: shortness of breath/ pleural effusion 67-year-old female with hypertension, end-stage renal disease on hemodial was admitted with worsening shortness of breath. Patient was placed on BiPAP for worsening shortness of breath and was given nebulizer treatment in the emergency room. Patient states her breathing improved after hemodialysis. Denies cough, denies fevers chills, denies night sweats. Chest x-ray consistent with small bilateral pleural effusion and congestive changes which improved with hemodialysis Review of Systems - Review of Systems All systems: reviewed and no additional remarkable complaints except (shortness of breath) Past Patient History - Infectious Disease Hx of Infectious Diseases: None - Past Medical History & Family History Past Medical History?: Yes - Past Social History Smoking Status: Never Smoked - CARDIAC Hx Hypercholesterolemia: Yes Hx Hypertension: Yes - PULMONARY Hx Respiratory Disorders: No - NEUROLOGICAL Hx Neurological Disorder: No - HEENT Hx HEENT Problems: No - RENAL Hx Chronic Kidney Disease: Yes Hx Dialysis: Yes Type of Dialysis Access: AV shunt Date of Last Dialysis Treatment: 01/11/18 Other/Comment: H/D [facility] - ENDOCRINE/METABOLIC Hx Endocrine Disorders: No - HEMATOLOGICAL/ONCOLOGICAL Hx Blood Disorders: Yes Hx Blood Transfusions: Yes - INTEGUMENTARY Hx Dermatological Problems: No - MUSCULOSKELETAL/RHEUMATOLOGICAL Hx Musculoskeletal Disorders: Yes Hx Falls: Yes (unstable) - GASTROINTESTINAL Hx Gastrointestinal Disorders: No - GENITOURINARY/GYNECOLOGICAL Hx Genitourinary Disorders: No Other/Comment: hd - PSYCHIATRIC Hx Substance Use: No - SURGICAL HISTORY Hx Surgeries: Yes Hx Kidney Transplant: Yes Other/Comment: KIDNEY TRANSPLANT. LEFT ARM AV SHUNT - ANESTHESIA Hx Anesthesia: Yes Hx Anesthesia Reactions: No Hx Malignant Hyperthermia: No Has any member of the family had a problem w/ anesthesia?: No Meds Allergies/Adverse Reactions: Allergies Allergy/AdvReac Type Severity Reaction Status Date / Time Penicillins Allergy Severe RASH Verified 01/11/18 11:37 - Medications Medications: Current Medications Amlodipine Besylate (Norvasc) 10 mg PO DAILY [facility] Last Admin: 01/12/18 10:36 Dose: 10 mg Cinacalcet (Sensipar) 60 mg PO ACD [facility] Last Admin: 01/11/18 22:55 Dose: Not Given Famotidine (Pepcid) 20 mg PO DAILY [facility] Last Admin: 01/12/18 10:36 Dose: 20 mg Furosemide (Lasix) 80 mg PO DAILY [facility] Last Admin: 01/12/18 10:36 Dose: 80 mg Heparin Sodium (Porcine) (Heparin) 5,000 units SC Q12 [facility] Azithromycin 500 mg/ Sodium (Chloride) 250 mls @ 250 mls/hr IVPB Q24H [facility] PRN Reason: Protocol Last Admin: 01/11/18 21:20 Dose: 250 mls/hr Isosorbide Mononitrate (Imdur) 120 mg PO DAILY [facility] Last Admin: 01/12/18 10:35 Dose: 120 mg Physical Exam - Head Exam Head Exam: ATRAUMATIC, NORMOCEPHALIC - ENT Exam ENT Exam: Mucous Membranes Moist - Neck Exam Neck exam: Positive for: Normal Inspection - Respiratory Exam Respiratory Exam: Clear to Auscultation Bilateral - Cardiovascular Exam Cardiovascular Exam: REGULAR RHYTHM - GI/Abdominal Exam GI & Abdominal Exam: Normal Bowel Sounds, Soft Results - Vital Signs Recent Vital Signs: Last Vital Signs Temp 98.4 F 01/12/18 15:00 Pulse 54 L 01/12/18 16:02 Resp 20 01/12/18 15:00 BP 136/65 01/12/18 15:00 Pulse Ox 96 01/12/18 15:00 - Labs Result Diagrams: 01/12/18 07:38 01/12/18 07:38 Labs: Laboratory Results - last 24 hr 01/12/18 01/12/18 07:38 07:38 WBC 5.0 RBC 2.87 L Hgb 8.0 L Hct 24.4 L MCV 85.1 MCH 27.8 MCHC 32.7 L RDW 19.1 H Plt Count 137 MPV 9.8 Neut % (Auto) 58.2 Lymph % (Auto) 31.8 [place] % (Auto) 6.5 Eos % (Auto) 3.0 Baso % (Auto) 0.5 Neut # (Auto) 2.9 Lymph # (Auto) 1.6 [place] # (Auto) 0.3 Eos # (Auto) 0.2 Baso # (Auto) 0.0 Sodium 143 Potassium 4.2 Chloride 102 Carbon Dioxide 31 H Anion Gap 14 BUN 19 H Creatinine 4.8 H Est GFR ( Amer) 11 Est GFR (Non-Af Amer) 9 Random Glucose 83 Calcium 8.5 L Total Bilirubin 0.9 AST 31 ALT 33 Alkaline Phosphatase 86 Total Protein 6.4 Albumin 3.5 Globulin 2.9 Albumin/Globulin Ratio 1.2 Assessment & Plan (1) Pleural effusion Status: Acute Comment: secondary to renal failure and improved with hemodialysis. No further intervention necessary (2) ESRD (end stage renal disease) on dialysis Status: Acute Comment: continue hemodialysis. Renal diet (3) Respiratory distress Status: Acute
--- NOTE | 2018-01-12 21:13 | CON ---
DATE: 01/12/2018 CARDIOLOGY CONSULTATION REASON FOR CONSULTATION: Volume overload. The history was obtained from the patient's son on the phone. HISTORY OF PRESENT ILLNESS: The patient is a 67 years old [place] female who has a history of end-stage renal disease, on hemodialysis for the past six, now scheduled Wednesday, and Wednesday and according to the son, she never missed dialysis or had to have an extra dialysis because of volume overload in the past, and the son is unaware of any prior history of heart attack. Last time, she saw service superintendent, Dr. James Claros, last year. The patient's shortness of breath has improved after she received hemodialysis. She denies any retrosternal chest pain. SOCIAL HISTORY: Nonsmoker, nondrinker. She lives with her son. MEDICATIONS: Zithromax 500 mg intravenously daily, clonidine 0.1 mg t.i.d., Coreg 6.25 mg twice a day, heparin 5000 units subcutaneous twice a day, Imdur 120 mg once a day, Lasix 80 mg once a day, Norvasc 10 mg once a day, Pepcid 20 mg once a day. REVIEW OF SYSTEMS: No fever or chills. No productive cough. No dizziness or syncope. PAST MEDICAL HISTORY: Hypertension; end-stage renal disease, on hemodialysis. No history of stroke or heart attack. PHYSICAL EXAMINATION: GENERAL: The patient is an elderly female who does not appear to be in acute distress. VITAL SIGNS: Blood pressure 145/70, heart rate 51, temperature 97.9, respirations 18. HEENT: Pale conjunctivae. CHEST: Minimal basilar rhonchi. HEART: S1, S2 are regular. ABDOMEN: Soft. EXTREMITIES: No pedal edema. Significant varicose veins in the right lower leg. LABORATORY DATA: Today's hemoglobin and hematocrit 8 and 24.4, white count and platelet count are within normal limit. SMA-7 today: Sodium 143, potassium 4.2, chloride 102, CO2 of 31, glucose 83, BUN 19, creatinine 4.8. ProBNP is 33,700. One set of troponin is negative. PT, PTT and INR are within normal limits. Echocardiographic study performed in 11/2016 revealed mild dilated left ventricle with [id number] concentric LVH and normal ejection fraction with severe pulmonary hypertension. Admitting chest x-ray revealed right lower and middle lobe dense infiltrates with bilateral pleural effusion. The official report stated pulmonary vascular congestion with small right and trace left pleural effusion. ASSESSMENT: 1. Status post volume overload. 2. Severe pulmonary hypertension. 3. Rule out bilateral pneumonia. 4. Hypertension. RECOMMENDATIONS: Continue current IV Zithromax 500 mg daily. Continue Imdur 120 mg once a day, Norvasc 10 mg once a day. Hold both Coreg and clonidine because of ongoing CHF as well as bradycardia. I will obtain chest x-ray, AP and lateral. If lower lobe infiltrate persists, I will consider chest CT scan without contrast. I will obtain 12-lead EKG as no EKG could be found in the chart or [employer] database. Jonathan Cochran MD
[2018-01-12] MEDS: Azithromycin 500 MG in Sodium Chloride 0.9% 250 ML IVPB SCH (21:25)
--- NOTE | 2018-01-13 16:41 | CP.PCM.PN ---
Subjective - Date & Time of Evaluation Date of Evaluation: 01/13/18 Time of Evaluation: 08:20 - Subjective Subjective: clinically same Objective - Vital Signs/Intake and Output Vital Signs (last 24 hours): Temp Pulse Resp BP Pulse Ox 98.2 F 56 L 17 179/91 H 96 01/13/18 14:45 01/13/18 16:21 01/13/18 16:21 01/13/18 16:21 01/13/18 16:21 - Medications Medications: Current Medications Amlodipine Besylate (Norvasc) 10 mg PO DAILY [facility] Last Admin: 01/13/18 09:13 Dose: Not Given Cinacalcet (Sensipar) 60 mg PO ACD [facility] Last Admin: 01/12/18 17:22 Dose: Not Given Famotidine (Pepcid) 20 mg PO DAILY [facility] Last Admin: 01/13/18 09:09 Dose: 20 mg Furosemide (Lasix) 80 mg PO DAILY [facility] Last Admin: 01/13/18 09:13 Dose: Not Given Heparin Sodium (Porcine) (Heparin) 5,000 units SC Q12 [facility] Last Admin: 01/13/18 09:09 Dose: 5,000 units Azithromycin 500 mg/ Sodium (Chloride) 250 mls @ 250 mls/hr IVPB Q24H [facility] PRN Reason: Protocol Last Admin: 01/12/18 21:25 Dose: 250 mls/hr Isosorbide Mononitrate (Imdur) 120 mg PO DAILY [facility] Last Admin: 01/13/18 09:13 Dose: Not Given - Labs Labs: 01/12/18 07:38 01/12/18 07:38 PT 12.0 SECONDS (9.7-12.2) 01/11/18 15:38 INR 1.1 01/11/18 15:38 APTT 32 SECONDS (21-34) 01/11/18 15:38 - Constitutional Appears: Well - Head Exam Head Exam: ATRAUMATIC, NORMAL INSPECTION, NORMOCEPHALIC - Eye Exam Eye Exam: EOMI, Normal appearance, PERRL Pupil Exam: NORMAL ACCOMODATION, PERRL - ENT Exam ENT Exam: Mucous Membranes Moist, Normal Exam - Neck Exam Neck Exam: Full ROM, Normal Inspection. absent: Lymphadenopathy - Respiratory Exam Respiratory Exam: Decreased Breath Sounds - Cardiovascular Exam Cardiovascular Exam: REGULAR RHYTHM, +S1, +S2 - GI/Abdominal Exam GI & Abdominal Exam: Soft, Diminished Bowel Sounds - Rectal Exam Rectal Exam: Deferred
--- NOTE | 2018-01-13 18:58 | PN ---
DATE: 01/13/2018 SUBJECTIVE: I did discuss the case with Dr. James Claros who is front desk officer, who asked me to continue care with the patient. The patient's shortness of breath has improved. PHYSICAL EXAMINATION: VITAL SIGNS: Blood pressure 132/66, heart rate 53, and temperature 97.9. HEENT: Normocephalic. CHEST: Absent breath sounds over the bases. HEART: S1 and S2 regular. ABDOMEN: Soft. EXTREMITIES: No edema. Significant right leg varicose veins. LABORATORY DATA: Chest x-ray revealed improvement of the bilateral lower lobe infiltrate with some residual right lower and right middle lobe infiltrate. The official report of the x-ray stated decreased pulmonary vascular congestion with decreased size of the pleural effusion. ASSESSMENT: 1. Status post volume overload. 2. End-stage renal disease, on hemodialysis. 3. Small bilateral pleural effusion. 4. Severe pulmonary hypertension. 5. Systemic hypertension. RECOMMENDATIONS: Continue subcutaneous heparin 5000 units every 12 hours, Imdur 120 mg once daily, Lasix 80 mg once a day, and Norvasc 10 mg once a day. The patient will undergo hemodialysis today. Jonathan Cochran MD
[2018-01-13] MEDS: Azithromycin 500 MG in Sodium Chloride 0.9% 250 ML IVPB SCH (21:15)
--- NOTE | 2018-01-14 15:28 | CT ---
PROCEDURE: CT Chest without contrast HISTORY: Shortness of breath COMPARISON: Plain radiographs from 01/12/2018. TECHNIQUE: Contiguous axial images were obtained through the chest without intravenous contrast enhancement. Sagittal and coronal reconstructions were performed. Radiation dose (DLP): 751.60 mGy-cm. This CT exam was performed using one or more of the following dose reduction techniques: Automated exposure control, adjustment of the mA and/or kV according to patient size, and/or use of iterative reconstruction technique. FINDINGS: LUNGS: The lungs are well inflated. There is patchy ground-glass attenuation in both lungs with interlobular septal thickening. There is more confluent airspace disease in the right lateral lung base. MEDIASTINUM: The aorta is not dilated. The pulmonary artery is enlarged and measures 4.3 cm. There is moderate cardiomegaly. Trace pericardial effusion. PLEURA: Small right pleural effusion and fluid in the minor fissure. No pneumothorax. BONES: No fracture. No destructive lesion. There is diffuse bone demineralization and multilevel degenerative changes in the spine. UPPER ABDOMEN: Grossly unremarkable. OTHER FINDINGS: None. IMPRESSION: 1. Findings are most compatible with patchy alveolar pulmonary edema in the lungs. Also noted is mild interstitial pulmonary edema. 2. Moderate cardiomegaly, small right pleural effusion and fluid in the minor fissure. 3. More confluent airspace disease in the right lower lobe may represent subsegmental atelectasis/pneumonia. Follow-up is advised.
--- NOTE | 2018-01-14 19:17 | CP.PCM.PN ---
Subjective - Date & Time of Evaluation Date of Evaluation: 01/14/18 Time of Evaluation: 08:00 - Subjective Subjective: clinically same Objective - Vital Signs/Intake and Output Vital Signs (last 24 hours): Temp Pulse Resp BP Pulse Ox 99 F 59 L 20 154/68 H 96 01/14/18 15:59 01/14/18 18:09 01/14/18 15:59 01/14/18 15:59 01/14/18 15:59 Intake and Output: 01/14/18 01/15/18 18:59 06:59 Intake Total 480 Balance 480 - Medications Medications: Current Medications Acetaminophen (Tylenol 325mg Tab) 650 mg PO Q6 PRN PRN Reason: Pain, Mild (1-3) Last Admin: 01/13/18 21:15 Dose: 650 mg Amlodipine Besylate (Norvasc) 10 mg PO DAILY [facility] Last Admin: 01/14/18 09:04 Dose: 10 mg Cinacalcet (Sensipar) 60 mg PO ACD [facility] Last Admin: 01/14/18 17:45 Dose: 60 mg Famotidine (Pepcid) 20 mg PO DAILY [facility] Last Admin: 01/14/18 09:05 Dose: 20 mg Furosemide (Lasix) 80 mg PO DAILY [facility] Last Admin: 01/14/18 09:04 Dose: 80 mg Heparin Sodium (Porcine) (Heparin) 5,000 units SC Q12 [facility] Last Admin: 01/14/18 09:06 Dose: 5,000 units Azithromycin 500 mg/ Sodium (Chloride) 250 mls @ 250 mls/hr IVPB Q24H [facility] PRN Reason: Protocol Last Admin: 01/13/18 21:15 Dose: 250 mls/hr Isosorbide Mononitrate (Imdur) 120 mg PO DAILY [facility] Last Admin: 01/14/18 09:04 Dose: 120 mg Ondansetron HCl (Zofran Inj) 4 mg IVP Q6 PRN PRN Reason: Nausea/Vomiting Last Admin: 01/13/18 21:15 Dose: 4 mg - Labs Labs: 01/12/18 07:38 01/12/18 07:38 PT 12.0 SECONDS (9.7-12.2) 01/11/18 15:38 INR 1.1 01/11/18 15:38 APTT 32 SECONDS (21-34) 01/11/18 15:38 - Constitutional Appears: Well - Head Exam Head Exam: ATRAUMATIC, NORMAL INSPECTION, NORMOCEPHALIC - Eye Exam Eye Exam: EOMI, Normal appearance, PERRL Pupil Exam: NORMAL ACCOMODATION, PERRL - ENT Exam ENT Exam: Mucous Membranes Moist, Normal Exam - Neck Exam Neck Exam: Full ROM, Normal Inspection. absent: Lymphadenopathy - Respiratory Exam Respiratory Exam: Decreased Breath Sounds - Cardiovascular Exam Cardiovascular Exam: REGULAR RHYTHM, +S1, +S2 - GI/Abdominal Exam GI & Abdominal Exam: Soft, Diminished Bowel Sounds - Rectal Exam Rectal Exam: Deferred Assessment and Plan - Assessment and Plan (Free Text) Plan: Spoke to the son Patient still has nausea and vomiting We will go Zofran before dialysis Continue current medication Continue IV Zithromax Patient is going for echocardiogram Discussed with the plan decided to do the CT scan of the chest Chest x-ray improved improved compared to the previous 1 CT chest revealed patchy alveolar edema in the lungs with moderate cardiomegaly with small right pleural effusion
[2018-01-14] MEDS: Azithromycin 500 MG in Sodium Chloride 0.9% 250 ML IVPB SCH (21:19)
--- NOTE | 2018-01-14 22:15 | PN ---
DATE: 01/14/2018 FOLLOWUP NOTE SUBJECTIVE: The patient is still experiencing shortness of breath and productive cough. PHYSICAL EXAMINATION: VITAL SIGNS: Blood pressure 154/68, heart rate 69, temperature 99, respirations 20. HEENT: Pale conjunctivae. CHEST: Minimal basilar rhonchi and rales. HEART: S1 and S2, regular. ABDOMEN: Soft. EXTREMITIES: No edema. ASSESSMENT: 1. Status post volume overload. 2. Consider myocardial infarction and bilateral pneumonia. 3. End-stage renal disease, on hemodialysis. 4. Severe pulmonary hypertension. 5. Systemic hypertension. RECOMMENDATIONS: I Dr. Bartlett and I ordered chest CT scan without contrast. The findings were consistent with patchy alveolar pulmonary edema in the lungs with mild interstitial pulmonary edema. Small right pleural effusion and fluid in the minor fissure. More confluent airspace disease in the right lower lobe, may represent subsegmental atelectasis/pneumonia. Continue current IV Zithromax at 500 mg daily. Subcutaneous heparin 5000 units every 12 hours, Lasix 80 mg orally once a day, Imdur 120 mg once a day. The patient will undergo hemodialysis tomorrow. Jonathan Cochran MD
[2018-01-15 15:55] LABS: BASO % 0.6 % (0.0-2.0); EOS # 0.1 K/uL (0.0-0.7); EOS % 2.6 % (0.0-4.0); HEMOGLOBIN 8.3 g/dL (11.0-16.0); LYMPH # 1.5 K/uL (1.0-4.3); LYMPH % 29.1 % (20.0-40.0); MEAN CORPUSCULAR HEMOGLOBIN 28.1 pg (27.0-31.0); MEAN CORPUSCULAR HGB CONC 33.1 g/dL (33.0-37.0); MEAN PLATELET VOLUME 9.8 fL (7.2-11.7); MONO # 0.3 K/uL (0.0-0.8); MONO % 6.3 % (0.0-10.0); NEUT # 3.2 K/uL (1.8-7.0); NEUT % 61.4 % (50.0-75.0); RBC 2.96 Mil/uL (3.80-5.20); RED CELL DISTRIBUTION WIDTH 18.4 % (11.5-14.5); WHITE BLOOD COUNT 5.1 K/uL (4.8-10.8)
[2018-01-15 16:02] LABS: CALCIUM 8.3 mg/dl (8.6-10.4)
--- NOTE | 2018-01-15 20:30 | CP.PCM.PN ---
Subjective - Date & Time of Evaluation Date of Evaluation: 01/15/18 Time of Evaluation: 08:00 - Subjective Subjective: clinically same Objective - Vital Signs/Intake and Output Vital Signs (last 24 hours): Temp Pulse Resp BP Pulse Ox 97.4 F L 61 19 186/84 H 97 01/15/18 15:35 01/15/18 18:35 01/15/18 18:35 01/15/18 18:35 01/15/18 15:35 - Medications Medications: Current Medications Acetaminophen (Tylenol 325mg Tab) 650 mg PO Q6 PRN PRN Reason: Pain, Mild (1-3) Last Admin: 01/13/18 21:15 Dose: 650 mg Amlodipine Besylate (Norvasc) 10 mg PO DAILY [facility] Last Admin: 01/15/18 10:30 Dose: 10 mg Cinacalcet (Sensipar) 60 mg PO ACD [facility] Last Admin: 01/15/18 19:53 Dose: 60 mg Famotidine (Pepcid) 20 mg PO DAILY [facility] Last Admin: 01/15/18 10:30 Dose: 20 mg Furosemide (Lasix) 80 mg PO DAILY [facility] Last Admin: 01/15/18 11:00 Dose: 80 mg Heparin Sodium (Porcine) (Heparin) 5,000 units SC Q12 [facility] Last Admin: 01/15/18 10:20 Dose: 5,000 units Azithromycin 500 mg/ Sodium (Chloride) 250 mls @ 250 mls/hr IVPB Q24H [facility] PRN Reason: Protocol Last Admin: 01/14/18 21:19 Dose: 250 mls/hr Isosorbide Mononitrate (Imdur) 120 mg PO DAILY [facility] Last Admin: 01/15/18 10:59 Dose: 120 mg Losartan Potassium (Cozaar) 50 mg PO DAILY [facility] Last Admin: 01/15/18 10:59 Dose: 50 mg Ondansetron HCl (Zofran Inj) 4 mg IVP Q6 PRN PRN Reason: Nausea/Vomiting Last Admin: 01/13/18 21:15 Dose: 4 mg - Labs Labs: 01/15/18 15:44 01/15/18 15:44 PT 12.0 SECONDS (9.7-12.2) 01/11/18 15:38 INR 1.1 01/11/18 15:38 APTT 32 SECONDS (21-34) 01/11/18 15:38 - Constitutional Appears: Well - Head Exam Head Exam: ATRAUMATIC, NORMAL INSPECTION, NORMOCEPHALIC - Eye Exam Eye Exam: EOMI, Normal appearance, PERRL Pupil Exam: NORMAL ACCOMODATION, PERRL - ENT Exam ENT Exam: Mucous Membranes Moist, Normal Exam - Neck Exam Neck Exam: Full ROM, Normal Inspection. absent: Lymphadenopathy - Respiratory Exam Respiratory Exam: Decreased Breath Sounds - Cardiovascular Exam Cardiovascular Exam: REGULAR RHYTHM, +S1, +S2 - GI/Abdominal Exam GI & Abdominal Exam: Soft, Diminished Bowel Sounds - Rectal Exam Rectal Exam: Deferred
[2018-01-15] MEDS: Azithromycin 500 MG in Sodium Chloride 0.9% 250 ML IVPB SCH (22:14)
--- NOTE | 2018-01-15 22:22 | CP.PCM.PN ---
Subjective - Date & Time of Evaluation Date of Evaluation: 01/15/18 Time of Evaluation: 18:00 - Subjective Subjective: Pulmonary, Covering Dr. Morrison The Patient was seen and examined at the bedside, Medical records reviewed and management issues were discussed and formulated with the house staff. Events reviewed 67 Years old Female with PMHx of HTN, Hypercholesterolemia and End Stage Renal Disease (on hemodialysis) Who was BIBA from home on 01/11 for evaluation of SOB x 1 day, As per EMS and son, she has been SOB since yesterday, worse with laying flat, Patient is scheduled to have HD today, but was too SOB so 911 was called. Patient placed on Bipap and given neb treatment in the field. In the ER, Chest x-ray consistent with small bilateral pleural effusion and congestive changes, Consent for special procedures obtained from the patient to receive dialysis. Patient admitted for further mangement of Dyspnea from Fluid overload, ESRD needing dialysis and acute congestive heart failure. She is doing better, denies chest pain, abdominal pain, nausea/vomiting, fever, cough, palpitations. Less SOB CXR: improved with hemodialysis Social Hx: Smoking Status: Never Smoked Echo 09/2015: Normal LVEF and wall motion, Mild LAE, Mild LVH, MOD TR, Mild MR and PI; Moderate inc in PASP around 47mmHf with grade 1 diastolic dysfunction and mild LAE. No pericardial effusion and normal RV size and function. Objective - Vital Signs/Intake and Output Vital Signs (last 24 hours): Temp Pulse Resp BP Pulse Ox 97.4 F L 61 19 186/84 H 97 01/15/18 15:35 01/15/18 18:35 01/15/18 18:35 01/15/18 18:35 01/15/18 15:35 - Medications Medications: Current Medications Acetaminophen (Tylenol 325mg Tab) 650 mg PO Q6 PRN PRN Reason: Pain, Mild (1-3) Last Admin: 01/13/18 21:15 Dose: 650 mg Amlodipine Besylate (Norvasc) 10 mg PO DAILY [facility] Last Admin: 01/15/18 10:30 Dose: 10 mg Cinacalcet (Sensipar) 60 mg PO ACD [facility] Last Admin: 01/15/18 19:53 Dose: 60 mg Famotidine (Pepcid) 20 mg PO DAILY [facility] Last Admin: 01/15/18 10:30 Dose: 20 mg Furosemide (Lasix) 80 mg PO DAILY [facility] Last Admin: 01/15/18 11:00 Dose: 80 mg Heparin Sodium (Porcine) (Heparin) 5,000 units SC Q12 [facility] Last Admin: 01/15/18 22:14 Dose: 5,000 units Azithromycin 500 mg/ Sodium (Chloride) 250 mls @ 250 mls/hr IVPB Q24H [facility] PRN Reason: Protocol Last Admin: 01/15/18 22:14 Dose: 250 mls/hr Isosorbide Mononitrate (Imdur) 120 mg PO DAILY [facility] Last Admin: 01/15/18 10:59 Dose: 120 mg Losartan Potassium (Cozaar) 50 mg PO DAILY [facility] Last Admin: 01/15/18 10:59 Dose: 50 mg Ondansetron HCl (Zofran Inj) 4 mg IVP Q6 PRN PRN Reason: Nausea/Vomiting Last Admin: 01/13/18 21:15 Dose: 4 mg - Labs Labs: 01/15/18 15:44 01/15/18 15:44 PT 12.0 SECONDS (9.7-12.2) 01/11/18 15:38 INR 1.1 01/11/18 15:38 APTT 32 SECONDS (21-34) 01/11/18 15:38 - Constitutional Appears: Well, Non-toxic - Head Exam Head Exam: ATRAUMATIC, NORMAL INSPECTION, NORMOCEPHALIC - Eye Exam Eye Exam: EOMI, Normal appearance Pupil Exam: NORMAL ACCOMODATION, PERRL - ENT Exam ENT Exam: Mucous Membranes Moist - Neck Exam Neck Exam: Full ROM. absent: Lymphadenopathy, Thyromegaly - Respiratory Exam Respiratory Exam: Decreased Breath Sounds, Rales. absent: Accessory Muscle Use , Chest Wall Tenderness, Clear to Ausculation Bilateral, Prolonged Expiratory Phase, Rhonchi, Wheezes, Respiratory Distress - Cardiovascular Exam Cardiovascular Exam: REGULAR RHYTHM, RRR. absent: Bradycardia, Tachycardia, JVD - GI/Abdominal Exam GI & Abdominal Exam: Soft, Normal Bowel Sounds. absent: Distended, Firm, Guarding, Rigid - Extremities Exam Extremities Exam: Normal Capillary Refill, Pedal Edema. absent: Joint Swelling , Tenderness - Back Exam Back Exam: absent: CVA tenderness (L), CVA tenderness (R) - Neurological Exam Neurological Exam: Alert, Awake Assessment and Plan (1) Fluid overload Assessment & Plan: HEMODIALYSIS PER RENAL CXR: IMPROVED Status: Acute (2) Acute diastolic (congestive) heart failure Assessment & Plan: Isosorbide Mononitrate (Imdur) 120 mg PO DAILY Furosemide (Lasix) 80 mg PO DAILY Amlodipine Besylate (Norvasc) 10 mg PO DAILY Status: Acute (3) Pulmonary hypertension Assessment & Plan: Echo 09/2015: Normal LVEF and wall motion, Mild LAE, Mild LVH, MOD TR, Mild MR and PI; Moderate inc in PASP around 47mmHf with grade 1 diastolic dysfunction and mild LAE. No pericardial effusion and normal RV size and function. Status: Acute (4) Pleural effusion Assessment & Plan: secondary to renal failure and improved with hemodialysis. No further intervention necessary Status: Acute (5) Dyspnea Status: Acute (6) ESRD needing dialysis Status: Acute
--- NOTE | 2018-01-15 22:50 | PN ---
DATE: 01/15/2018 SUBJECTIVE: The patient is currently undergoing hemodialysis. She denies any chest pain. PHYSICAL EXAMINATION: VITAL SIGNS: Blood pressure 172/79, heart rate 59, respirations 20, temperature 97.4. HEENT: Pale conjunctivae. CHEST: Absent breath sounds over the right base. HEART: S1 and S2, regular. EXTREMITIES: No edema. LABORATORY DATA: SMA-7 today: Sodium 137, potassium 5.3, chloride 97, CO2 is 28, glucose 100, BUN 29, creatinine 6.1. Today's hemoglobin and hematocrit 8.3 and 25.2, white count 5.1, platelet count 127,000. Official report of the chest CT scan without contrast, findings most compatible with patchy alveolar pulmonary edema in the lungs. Also noted is mild interstitial pulmonary edema. Moderate cardiomegaly. Small right pleural effusion and fluid in the minor fissure. More confluent airspace disease in the right lower lobe may represent subsegmental atelectasis/pneumonia. ASSESSMENT: 1. Status post volume overload. 2. Consider right lower lobe pneumonia. 3. Endstage renal disease, on hemodialysis. 4. Anemia, very mild thrombocytopenia. 5. Systemic hypertension. RECOMMENDATIONS: Continue current IV Zithromax at 500 mg daily, Cozaar 50 mg once a day, subcutaneous heparin 5000 international units twice a day, Imdur at 120 mg once a day, Lasix 80 mg intravenously once a day, Norvasc 10 mg once a day, Pepcid 20 mg once a day. Jonathan Cochran MD
--- NOTE | 2018-01-16 08:44 | CP.PCM.PN ---
Subjective - Date & Time of Evaluation Date of Evaluation: 01/16/18 Time of Evaluation: 08:20 - Subjective Subjective: clinically same Objective - Vital Signs/Intake and Output Vital Signs (last 24 hours): Temp Pulse Resp BP Pulse Ox 98.1 F 61 20 153/85 H 96 01/16/18 08:40 01/16/18 08:40 01/16/18 08:40 01/16/18 08:40 01/16/18 08:40 - Medications Medications: Current Medications Acetaminophen (Tylenol 325mg Tab) 650 mg PO Q6 PRN PRN Reason: Pain, Mild (1-3) Last Admin: 01/13/18 21:15 Dose: 650 mg Amlodipine Besylate (Norvasc) 10 mg PO DAILY [facility] Last Admin: 01/15/18 10:30 Dose: 10 mg Cinacalcet (Sensipar) 60 mg PO ACD [facility] Last Admin: 01/15/18 19:53 Dose: 60 mg Famotidine (Pepcid) 20 mg PO DAILY [facility] Last Admin: 01/15/18 10:30 Dose: 20 mg Furosemide (Lasix) 80 mg PO DAILY [facility] Last Admin: 01/15/18 11:00 Dose: 80 mg Heparin Sodium (Porcine) (Heparin) 5,000 units SC Q12 EREN Last Admin: 01/15/18 22:14 Dose: 5,000 units Azithromycin 500 mg/ Sodium (Chloride) 250 mls @ 250 mls/hr IVPB Q24H EREN PRN Reason: Protocol Last Admin: 01/15/18 22:14 Dose: 250 mls/hr Isosorbide Mononitrate (Imdur) 120 mg PO DAILY [facility] Last Admin: 01/15/18 10:59 Dose: 120 mg Losartan Potassium (Cozaar) 50 mg PO DAILY [facility] Last Admin: 01/15/18 10:59 Dose: 50 mg Ondansetron HCl (Zofran Inj) 4 mg IVP Q6 PRN PRN Reason: Nausea/Vomiting Last Admin: 01/13/18 21:15 Dose: 4 mg - Labs Labs: 01/15/18 15:44 01/15/18 15:44 PT 12.0 SECONDS (9.7-12.2) 01/11/18 15:38 INR 1.1 01/11/18 15:38 APTT 32 SECONDS (21-34) 01/11/18 15:38 - Constitutional Appears: Well - Head Exam Head Exam: ATRAUMATIC, NORMAL INSPECTION, NORMOCEPHALIC - Eye Exam Eye Exam: EOMI, Normal appearance, PERRL Pupil Exam: NORMAL ACCOMODATION, PERRL - ENT Exam ENT Exam: Mucous Membranes Moist, Normal Exam - Neck Exam Neck Exam: Full ROM, Normal Inspection. absent: Lymphadenopathy - Respiratory Exam Respiratory Exam: Decreased Breath Sounds - Cardiovascular Exam Cardiovascular Exam: REGULAR RHYTHM, +S1, +S2 - GI/Abdominal Exam GI & Abdominal Exam: Soft, Diminished Bowel Sounds - Rectal Exam Rectal Exam: Deferred Assessment and Plan (1) CHF (congestive heart failure) Status: Acute (2) Dyspnea Status: Acute (3) ESRD needing dialysis Status: Acute (4) Fluid overload Status: Acute (5) Pleural effusion Status: Acute (6) Bleeding from dialysis shunt Status: Acute (7) Diabetes Status: Acute (8) ESRD (end stage renal disease) on dialysis Status: Acute (9) End stage renal disease Status: Acute (10) HTN (hypertension) Status: Acute (11) Nausea & vomiting Status: Acute (12) Pneumonia Status: Acute (13) Pulmonary edema Status: Acute (14) Respiratory distress Status: Acute (15) Respiratory failure Status: Acute - Assessment and Plan (Free Text) Plan: For possible discharge monitor her blood pressure blood pressure is 160/75 the last sitting 153/85 Discussed with the family IV Zithromax Zofran We will continue Lasix on discharge at 80 mg daily As ordered
--- NOTE | 2018-01-16 20:43 | PN ---
DATE: 01/16/2018 SUBJECTIVE: The patient's shortness of breath improved. PHYSICAL EXAMINATION: VITAL SIGNS: Blood pressure 153/85, heart rate 61, temperature 98.1, respirations 20. HEENT: Pale conjunctivae. CHEST: Diminished breath sounds over the right base. HEART: S1 and S2 regular. ABDOMEN: Soft. EXTREMITIES: No edema. ASSESSMENT: 1. Status post volume overload. 2. Consider right lower lobe pneumonia. 3. Anemia. 4. End-stage renal disease, on hemodialysis. 5. Systemic hypertension. 6. Severe pulmonary hypertension, most likely secondary to underlying chronic obstructive lung disease. RECOMMENDATIONS: The case was discussed with the patient's son at the bedside. Continue current IV Zithromax. Continue Cozaar 50 mg once a day, subcutaneous heparin 5000 units every 12 hours, Imdur at 120 mg once a day, Lasix at 80 mg once a day, Norvasc 10 mg once a day. The patient will be followed by her original [employer] administrator, Dr. James Claros upon discharge. Jonathan Cochran MD
[2018-01-16] MEDS: Azithromycin 500 MG in Sodium Chloride 0.9% 250 ML IVPB SCH (21:52)
[2018-01-17 08:41] VITALS: O2SAT 100
[2018-01-17 09:58] VITALS: BP 177/85
[2018-01-17 11:16] LABS: BASO % 0.4 % (0.0-2.0); EOS # 0.1 K/uL (0.0-0.7); HEMOGLOBIN 8.6 g/dL (11.0-16.0); LYMPH # 0.9 K/uL (1.0-4.3); LYMPH % 23.9 % (20.0-40.0); MEAN CELL VOLUME 86.7 fL (81.0-99.0); MEAN CORPUSCULAR HEMOGLOBIN 27.8 pg (27.0-31.0); MEAN CORPUSCULAR HGB CONC 32.1 g/dL (33.0-37.0); MEAN PLATELET VOLUME 9.5 fL (7.2-11.7); MONO # 0.2 K/uL (0.0-0.8); MONO % 6.3 % (0.0-10.0); NEUT # 2.6 K/uL (1.8-7.0); NEUT % 66.4 % (50.0-75.0); RBC 3.1 Mil/uL (3.80-5.20); RED CELL DISTRIBUTION WIDTH 18.9 % (11.5-14.5); WHITE BLOOD COUNT 3.9 K/uL (4.8-10.8)
[2018-01-17 11:34] LABS: ALB/GLOB RATIO 1.4 (1.0-2.1); CALCIUM 8.7 mg/dl (8.6-10.4)
--- NOTE | 2018-01-17 12:23 | CP.PCM.PN ---
Subjective - Date & Time of Evaluation Date of Evaluation: 01/17/18 Time of Evaluation: 12:23 Objective - Vital Signs/Intake and Output Vital Signs (last 24 hours): Temp Pulse Resp BP Pulse Ox 97.7 F 91 H 18 177/85 H 100 01/17/18 08:00 01/17/18 08:00 01/17/18 08:00 01/17/18 09:55 01/17/18 08:00 Intake and Output: 01/17/18 01/17/18 06:59 18:59 Intake Total 50 Balance 50 - Medications Medications: Current Medications Acetaminophen (Tylenol 325mg Tab) 650 mg PO Q6 PRN PRN Reason: Pain, Mild (1-3) Last Admin: 01/13/18 21:15 Dose: 650 mg Amlodipine Besylate (Norvasc) 10 mg PO DAILY [facility] Last Admin: 01/17/18 09:56 Dose: 10 mg Cinacalcet (Sensipar) 60 mg PO ACD [facility] Last Admin: 01/16/18 16:39 Dose: 60 mg Famotidine (Pepcid) 20 mg PO DAILY [facility] Last Admin: 01/17/18 09:56 Dose: 20 mg Furosemide (Lasix) 80 mg PO DAILY [facility] Last Admin: 01/17/18 09:55 Dose: 80 mg Heparin Sodium (Porcine) (Heparin) 5,000 units SC Q12 [facility] Last Admin: 01/17/18 09:55 Dose: 5,000 units Isosorbide Mononitrate (Imdur) 120 mg PO DAILY [facility] Last Admin: 01/17/18 09:56 Dose: 120 mg Losartan Potassium (Cozaar) 50 mg PO DAILY [facility] Last Admin: 01/17/18 09:56 Dose: 50 mg Ondansetron HCl (Zofran Inj) 4 mg IVP Q6 PRN PRN Reason: Nausea/Vomiting Last Admin: 01/13/18 21:15 Dose: 4 mg - Labs Labs: 01/17/18 11:06 01/17/18 11:06 PT 12.0 SECONDS (9.7-12.2) 01/11/18 15:38 INR 1.1 01/11/18 15:38 APTT 32 SECONDS (21-34) 01/11/18 15:38 Assessment and Plan - Assessment and Plan (Free Text) Assessment: FOLLOW UP WITH DR Donnie COSTELLO IN 1-2 WEEK IN HIS OFFICE ---CALL FOR APPOINTMENT FOLLOW UP WITH YOUR OWN [facility] DR SWE[place]Y IN 1 WEEK AT HIS OFFICE ---CALL FOR APPOINTMENT ADDRESS YOUR BLOOD PRESSURE MED THE [facility] AND [place] CONTINUE ALL YOUR HOME MEDICATION ' NEW PRESCRIPTION GIVEN [place] 50 DAILY PO STOP THE [facility] UNTIL REVISE BY YOUR [facility] HEMODIALYSIS SCHEDULE [facility] WITH SERVICE AND PHYSICAL THERAPY ORDER; DX WEAKNESS/ DECONDITIONING CALL DR Donnie COSTELLO OR GO TO THE EMERGENCY ROOM IF SYMPTOMS RETURN OR WORSENING
[2018-01-17 13:11] VITALS: PULSE 66; RESP 20; TEMP 98.1
--- NOTE | 2018-01-17 19:08 | PN ---
DATE: 01/17/2018 SUBJECTIVE: The patient is mildly short of breath, productive cough has improved. No retrosternal chest pain. PHYSICAL EXAMINATION: VITAL SIGNS: Blood pressure 177/85, heart rate 66, temperature 98.1, respirations 20. HEENT: Pale conjunctivae. CHEST: Diminished breath sounds over right base. HEART: S1 and S2 regular. EXTREMITIES: No edema. LABORATORY DATA: Today's hemoglobin and hematocrit 8.6 and 26.9, white count 3.9, platelet count 112,000. SMA-7: Sodium 140, potassium 4.9, chloride 97, CO2 is 32, glucose 121 , creatinine 6.3. ASSESSMENT: 1. Right lower lobe pneumonia. 2. Chronic obstructive lung disease. 3. Status post volume overload. 4. Diastolic left ventricular dysfunction. 5. End-stage renal disease on hemodialysis. 6. Anemia. 7. Mild thrombocytopenia. RECOMMENDATIONS: Continue Cozaar 50 mg once a day, Imdur 120 mg once a day, Lasix at 80 mg once a day, Norvasc 10 mg once a day. Discontinue subcutaneous heparin and discontinue telemetry. The plan is to discharge the patient today and have her scheduled tomorrow dialysis as an outpatient. Jonathan Cochran MD
--- NOTE | 2018-01-18 12:49 | CARD ---
APPROVED REPORT Date of service: 01/13/2018 EKG Measurement Heart [id number] <Conclusion> Sinus bradycardia Otherwise normal ECG
== END 2018-01-17 15:35 | disposition home health service (06) | DRG 291 ==
LOC: C.ER 09:23 → C.9E 11:37 → C.5S 13:23
PROVIDERS: ADMIT Internal Medicine Nephrology; ATTEND Internal Medicine Nephrology
PROC: 5A1D70Z Performance of Urinary Filtration, Intermittent, Less than 6 Hours Per Day (ICD-10-PCS; principal; 2018-01-11)
PROC: 5A09457 Assistance with Respiratory Ventilation, 24-96 Consecutive Hours, Continuous Positive Airway Pressure (ICD-10-PCS; 2018-01-11)
PROC: 5A1D70Z Performance of Urinary Filtration, Intermittent, Less than 6 Hours Per Day (ICD-10-PCS; 2018-01-15)
DX: I13.2 Hypertensive heart and chronic kidney disease with heart failure and with stage 5 chronic kidney disease, or end stage renal disease (principal); N18.6 End stage renal disease; J96.90 Respiratory failure, unspecified, unspecified whether with hypoxia or hypercapnia; J18.9 Pneumonia, unspecified organism; J44.0 Chronic obstructive pulmonary disease with (acute) lower respiratory infection; T82.838A Hemorrhage due to vascular prosthetic devices, implants and grafts, initial encounter; Z94.0 Kidney transplant status; I50.9 Heart failure, unspecified; I27.20 Pulmonary hypertension, unspecified; E78.00 Pure hypercholesterolemia, unspecified; E11.22 Type 2 diabetes mellitus with diabetic chronic kidney disease; D64.9 Anemia, unspecified; Y84.1 Kidney dialysis as the cause of abnormal reaction of the patient, or of later complication, without mention of misadventure at the time of the procedure; D69.6 Thrombocytopenia, unspecified; Z99.2 Dependence on renal dialysis

== ENCOUNTER 2018-04-11 15:09 | Inpatient (IN) | payer MEDICARE, OTHER ==
[2018-04-11 15:24] VITALS: BMI 28.6
[2018-04-11] MEDS ORDERED: Nitroglycerin 50mg in D5W 50 MG/250 ML BOTTLE IV ONE ×2 (16:28→17:02)
[2018-04-11 16:29] LABS: BASO % 0.5 % (0.0-2.0); EOS # 0.1 K/uL (0.0-0.7); EOS % 1.8 % (0.0-4.0); HEMOGLOBIN 10.7 g/dL (11.0-16.0); LYMPH # 1.4 K/uL (1.0-4.3); LYMPH % 25.6 % (20.0-40.0); MEAN CELL VOLUME 84.6 fL (81.0-99.0); MEAN CORPUSCULAR HEMOGLOBIN 26.9 pg (27.0-31.0); MEAN CORPUSCULAR HGB CONC 31.8 g/dL (33.0-37.0); MEAN PLATELET VOLUME 9.9 fL (7.2-11.7); MONO # 0.3 K/uL (0.0-0.8); MONO % 5.3 % (0.0-10.0); NEUT # 3.6 K/uL (1.8-7.0); NEUT % 66.8 % (50.0-75.0); NRBC % 0.1 % (0.0-2.0); RBC 3.97 Mil/uL (3.80-5.20); RED CELL DISTRIBUTION WIDTH 16.5 % (11.5-14.5); WHITE BLOOD COUNT 5.4 K/uL (4.8-10.8)
[2018-04-11] MEDS ORDERED: Moxifloxacin IV 400mg/250ml NS 400 MG/250 ML BAG IVPB ONE ×2 (16:29→17:02)
[2018-04-11 16:40] LABS: CALCIUM 9.2 mg/dl (8.6-10.4)
[2018-04-11 16:43] LABS: ALB/GLOB RATIO 1.3 (1.0-2.1); ALBUMIN 4.1 g/dL (3.5-5.0)
--- NOTE | 2018-04-11 16:52 | C.PDOC ---
History Of Present Illness 67-year-old female, PMHx includes Hypertension, CHF, ESRD (HD //Wed), presents to the emergency department accompanied by son with complaints of generalized weakness and loss of appetite. Pts last dialysis was two days ago. States she had nausea/vomiting afterward which is typical for her after receiving dialysis. Pt seen in Dr Morrison's office today, where she was found to be hypoxic, resulting in her being sent to ED for further evaluation. No chest pain, diarrhea, fever or any other associated symptoms. No other complaints at this time. PMD Lela Bartlett MD> Dr Morrison. Time Seen by Provider: 04/11/18 15:44 Chief Complaint (Nursing): Shortness Of Breath History Per: Patient, Family History/Exam Limitations: no limitations Onset/Duration Of Symptoms: Days Current Symptoms Are (Timing): Still Present Past Medical History Reviewed: Historical Data, Nursing Documentation, Vital Signs Vital Signs: Last Vital Signs Temp 98.5 F 04/11/18 15:24 Pulse 54 L 04/11/18 15:24 Resp 24 04/11/18 15:47 BP 147/65 04/11/18 15:24 Pulse Ox 95 04/11/18 15:47 - Medical History PMH: CHF, HTN, Hypercholesterolemia, End Stage Renal Disease (on hemodialysis), Chronic Kidney Disease - [facility] Procedures (01/11/18) ASSISTANCE WITH RESPIRATORY VENTILATION, 24-96 HRS, CPAP (01/11/18) ASSISTANCE WITH RESPIRATORY VENTILATION, <24 HRS, CPAP (09/30/15) PERFORMANCE OF URINARY FILTRATION, SINGLE (09/30/15) Family History: States: No Known Family Hx - Social History Hx Tobacco Use: No Hx Alcohol Use: No Hx Substance Use: No - Immunization History Hx Tetanus Toxoid Vaccination: Yes Hx Influenza Vaccination: Yes Hx Pneumococcal Vaccination: Yes Review Of Systems Constitutional: Positive for: Weakness, Malaise. Negative for: Fever Respiratory: Positive for: Shortness of Breath Gastrointestinal: Negative for: Abdominal Pain Musculoskeletal: Negative for: Back Pain, Leg Pain Neurological: Negative for: Weakness, Numbness, Headache, Dizziness Physical Exam - Physical Exam Appears: Non-toxic, No Acute Distress Skin: Warm, Dry, No Rash Head: Atraumatic Eye(s): bilateral: Normal Inspection Nose: Normal Oral Mucosa: Moist Lips: Normal Appearing Neck: Normal ROM Chest: Symmetrical Cardiovascular: Rhythm Regular, No Murmur Respiratory: Other (bibasilar crackles) Gastrointestinal/Abdominal: Soft, No Tenderness Extremity: Normal ROM, Pedal Edema, No Calf Tenderness, No Deformity Neurological/Psych: Oriented x3, Normal Speech ED Course And Treatment - Laboratory Results Result Diagrams: 04/11/18 16:19 04/11/18 16:19 O2 Sat by Pulse Oximetry: 95 Pulse Ox Interpretation: Normal (RA) Medical Decision Making Medical Decision Making: Plan: * EKG * Bloodwork * Chest X-Ray * Lasix, Avelox, Nitroglycerin * UA * Reassess and Disposition * Discussed with Dr. Morrison, recommended tele. Discussed with Dr. Bartlett , will admit to tele. Disposition Discussed With .: Ed Bartlett Counseled Patient/Family Regarding: Studies Performed, Diagnosis - Disposition Disposition: HOSPITALIZED Disposition Time: 17:54 Condition: GUARDED Forms: [facility] (Mongolian) - Clinical Impression Clinical Impression: Respiratory distress, Chronic congestive heart failure, Acute diastolic (congestive) heart failure, Dyspnea, ESRD (end stage renal disease) on dialysis - Scribe Statement The provider has reviewed the documentation as recorded by the Scribe (Biju Alvarez) Provider Attestation: All medical record entries made by the Scribe were at my direction and personally dictated by me. I have reviewed the chart and agree that the record accurately reflects my personal performance of the history, physical exam, medical decision making, and the department course for this patient. I have also personally directed, reviewed, and agree with the discharge instructions and disposition. Decision To Admit - Pt Status Changed To: Hospital Disposition Of: Inpatient - Admit Certification Admit to Inpatient:: After my assessment, the patient will require hospitalization for at least two midnights. This is because of the severity of symptoms shown, intensity of services needed, and/or the medical risk in this patient being treated as an outpatient. - InPatient: Physician Admission Certification: I certify that this patient requires 2 or more midnights of care for the following reason:: severe SOB, hypoxemia, CHF - . Bed Request Type: Telemetry Admitting Physician: Ed Barteltt Patient Diagnosis: Respiratory distress, Chronic congestive heart failure, Acute diastolic (congestive) heart failure, Dyspnea, ESRD (end stage renal disease) on dialysis
[2018-04-11 16:53] LABS: TROPONIN I 0.039 ng/mL (0.00-0.120)
[2018-04-11] MEDS ORDERED: Nitroglycerin 2% Ointment Foilpak UD TOP STA (18:01)
[2018-04-11] MEDS ORDERED: Nitroglycerin 2% Ointment Foilpak UD TOP ONE (18:06)
--- NOTE | 2018-04-11 18:16 | RAD ---
Date of service: 04/11/2018 PROCEDURE: CHEST RADIOGRAPH, 1 VIEW HISTORY: SOB COMPARISON: 02/21/2018. FINDINGS: LUNGS: New right lower lobe infiltrate likely pneumonia. Pulmonary vascular congestion a stable/underlying finding. PLEURA: Right pleural effusion inseparable from right lower lobe infiltrate. CARDIOVASCULAR: Stable cardiomegaly/pulmonary vascular congestion. OSSEOUS STRUCTURES: No significant abnormalities. VISUALIZED UPPER ABDOMEN: Normal. OTHER FINDINGS: None. IMPRESSION: New right lower lobe infiltrate-right pleural effusion.
--- NOTE | 2018-04-11 19:44 | CP.PCM.HP ---
Past Patient History - Infectious Disease Hx of Infectious Diseases: None - Past Medical History & Family History Past Medical History?: Yes - Past Social History Smoking Status: Never Smoked - CARDIAC Hx Congestive Heart Failure: Yes Hx Hypercholesterolemia: Yes Hx Hypertension: Yes - PULMONARY Hx Respiratory Disorders: No - NEUROLOGICAL Hx Neurological Disorder: No - HEENT Hx HEENT Problems: No - RENAL Hx Chronic Kidney Disease: Yes - ENDOCRINE/METABOLIC Hx Endocrine Disorders: No - HEMATOLOGICAL/ONCOLOGICAL Hx Blood Transfusions: Yes - INTEGUMENTARY Hx Dermatological Problems: No - MUSCULOSKELETAL/RHEUMATOLOGICAL Hx Musculoskeletal Disorders: Yes Hx Falls: Yes (unstable) - GASTROINTESTINAL Hx Gastrointestinal Disorders: No - GENITOURINARY/GYNECOLOGICAL Hx Genitourinary Disorders: No Other/Comment: hd - PSYCHIATRIC Hx Substance Use: No - SURGICAL HISTORY Hx Surgeries: Yes Hx Kidney Transplant: Yes Other/Comment: KIDNEY TRANSPLANT. LEFT ARM AV SHUNT - ANESTHESIA Hx Anesthesia: Yes Hx Anesthesia Reactions: No Hx Malignant Hyperthermia: No Meds Allergies/Adverse Reactions: Allergies Allergy/AdvReac Type Severity Reaction Status Date / Time Penicillins Allergy Severe RASH Verified 04/11/18 15:22 Results - Vital Signs Recent Vital Signs: Last Vital Signs Temp 98 F 04/11/18 17:35 Pulse 52 L 04/11/18 17:35 Resp 18 04/11/18 17:35 BP 140/60 04/11/18 17:35 Pulse Ox 95 04/11/18 17:56 - Labs Result Diagrams: 04/11/18 16:19 04/11/18 16:19 Labs: Laboratory Results - last 24 hr 04/11/18 04/11/18 04/11/18 16:19 16:19 16:19 WBC 5.4 RBC 3.97 Hgb 10.7 L D Hct 33.6 L MCV 84.6 D MCH 26.9 L MCHC 31.8 L RDW 16.5 H Plt Count 154 MPV 9.9 Neut % (Auto) 66.8 Lymph % (Auto) 25.6 [place] % (Auto) 5.3 Eos % (Auto) 1.8 Baso % (Auto) 0.5 Neut # (Auto) 3.6 Lymph # (Auto) 1.4 [place] # (Auto) 0.3 Eos # (Auto) 0.1 Baso # (Auto) 0.0 D-Dimer, Quantitative Sodium 139 Potassium 5.4 H Chloride 100 Carbon Dioxide 31 H Anion Gap 13 BUN 31 H Creatinine 6.4 H Est GFR ( Amer) 8 Est GFR (Non-Af Amer) 6 Random Glucose 93 Calcium 9.2 Total Bilirubin 1.2 AST 40 H D ALT 21 Alkaline Phosphatase 95 Troponin I 0.0390 NT-Pro-B Natriuret Pep 36778 H Total Protein 7.3 Albumin 4.1 Globulin 3.2 Albumin/Globulin Ratio 1.3 Influenza Typ A,B (EIA) Negative for flu a/b 04/11/18 17:27 WBC RBC Hgb Hct MCV MCH MCHC RDW Plt Count MPV Neut % (Auto) Lymph % (Auto) [place] % (Auto) Eos % (Auto) Baso % (Auto) Neut # (Auto) Lymph # (Auto) [place] # (Auto) Eos # (Auto) Baso # (Auto) D-Dimer, Quantitative 238 Sodium Potassium Chloride Carbon Dioxide Anion Gap BUN Creatinine Est GFR ( Amer) Est GFR (Non-Af Amer) Random Glucose Calcium Total Bilirubin AST ALT Alkaline Phosphatase Troponin I NT-Pro-B Natriuret Pep Total Protein Albumin Globulin Albumin/Globulin Ratio Influenza Typ A,B (EIA)
[2018-04-11 22:28] LABS: SQUAMOUS EPITHIAL 54 /hpf (0-5); URINE BACTERIA OCC (<OCC); URINE BILIRUBIN NEGATIVE (NEGATIVE); URINE BLOOD 1+ (NEGATIVE); URINE CLARITY Hazy (Clear); URINE COLOR Yellow (YELLOW); URINE GLUCOSE (UA) 2+ mg/dL (Normal); URINE LEUKOCYTE ESTERASE 3+ Leu/uL (Negative); URINE PROTEIN 2+ mg/dL (NEGATIVE); URINE UROBILINOGEN NORMAL mg/dL (0.2-1.0)
--- NOTE | 2018-04-12 12:24 | CP.PCM.CON ---
History of Present Illness - History of Present Illness History of Present Illness: Nephrology Consultation Note (covering for Dr Donnie Bartlett): Assessment: Stable Acute hypoxic respi failure Pulm edema severe pulmonary HTN Hypertensive Chronic Kidney Disease (I12.0) End stage renal disease (N18.6) dependence on hemodialysis (Z99.2) (TTS) via AVF Anemia (D64.9), Hyperphosphatemia (E83.39), Secondary Hyperparathyroidism (E21.1 ), HTN (I12.0) hx of failed kidney Transplant Plan: Will plan for HD today as ordered. Will plan for dialysis tomorrow as isolated UF only. Continue with Nephrovite 1 tab/day. PRBC as needed for anemia. not on ISAAC with dialysis as last Hb 10.7 Continue with phos binders, last phos level: check Continue with sensipar BP control with meds as ordered. Patient on RAAS rhys as losartan Glycemic control, Dialysis consistent diet Further work up/management as per primary team Dose meds/antibiotics (if needed) for ESRD status. Avoid fleets enema/magnesium based laxatives. Thanks for allowing me to participate in care of your patient. Will follow patient with you. Please call if any Qs. carlito marquez team and family bedside Dr Chin Arenas Office: [phone] Chief Complaint; SOB and low Oxygen sat Reason for consult: ESRD HPI: Pt is a 67 F with hx of ESRD on hemodialysis (TTS) via AVF , last dialysis sat, chronic anemia, hyperphosphatemia, secondary hyperparathyroidism, hypertension severe pulmonary HTN presented with complaints of SOB x 1-2 day along with low O2 sat in doctor office hence admitted for further management Renal consult requested for ESRD management. pt feels better with O2 SOB better no cough. 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 Pulmonary: c/o shortness of breath Gastrointestinal: denies abdominal pain No nausea. No vomiting. Genitourinary: No pain while urinating. Denies blood in urine. makes minimal urine All other negative except as mentioned in HPI Physical Examination: General Appearance: Comfortable, in no acute respiratory distress, co-operative . Vitals reviewed and noted as below Head; Atraumatic, normocephalic ENT: no ulcers no thrush. Tongue is midline. Oropharynx: no rash or ulcers. EYES: Pupils are equal, round and reactive to light accommodation. Eye muscles and extraocular movement intact. Sclera is anicteric. Neck; supple no lymphadenopathy, no thyromegaly or bruit Lungs: Normal respiratory rate/effort. Breath sounds bilateral decreased at bas es with crackles Heart: Normal rate. s1s2 normal. No rub or gallop. Extremities: no edema. No varicose veins Neurological: Patient is alert, awake and oriented to person, place and time. No focal deficit. Strength bilateral appropriate and equal Skin: Warm and dry. Normal turgor. No rash. Palpitation: Normal elasticity for age Abdomen: Abdomen is soft. Bowel sounds +. There is no abdominal tenderness, no guarding/rigidity or organomegaly Psych: normal insight and normal affect/mood MSK: no joint tenderness or swelling. Digits and nails normal, no deformity : kidney or bladder not palpable Access: AVF with pseudoaneurysm Labs/imaging reviewed. Past medical history, past surgical history, family history, social history, allergy reviewed and noted as below Family Hx: no hx of CKD. Non contributory echo 2017: severe pHTN with normal LVEF Past Patient History - Infectious Disease Hx of Infectious Diseases: None - Past Medical History & Family History Past Medical History?: Yes - Past Social History Smoking Status: Never Smoked - CARDIAC Hx Congestive Heart Failure: Yes Hx Hypercholesterolemia: Yes Hx Hypertension: Yes - PULMONARY Hx Respiratory Disorders: No - NEUROLOGICAL Hx Neurological Disorder: No - HEENT Hx HEENT Problems: No - RENAL Hx Chronic Kidney Disease: Yes Date of Last Dialysis Treatment: 04/09/18 - ENDOCRINE/METABOLIC Hx Endocrine Disorders: No - HEMATOLOGICAL/ONCOLOGICAL Hx Blood Transfusions: Yes - INTEGUMENTARY Hx Dermatological Problems: No - MUSCULOSKELETAL/RHEUMATOLOGICAL Hx Musculoskeletal Disorders: Yes Hx Falls: Yes (unstable) - GASTROINTESTINAL Hx Gastrointestinal Disorders: No - GENITOURINARY/GYNECOLOGICAL Hx Genitourinary Disorders: No Other/Comment: hd - PSYCHIATRIC Hx Substance Use: No - SURGICAL HISTORY Hx Surgeries: Yes Hx Kidney Transplant: Yes Other/Comment: KIDNEY TRANSPLANT. LEFT ARM AV SHUNT - ANESTHESIA Hx Anesthesia: Yes Hx Anesthesia Reactions: No Hx Malignant Hyperthermia: No Meds Allergies/Adverse Reactions: Allergies Allergy/AdvReac Type Severity Reaction Status Date / Time Penicillins Allergy Severe RASH Verified 04/11/18 15:22 - Medications Medications: Current Medications Amlodipine Besylate (Norvasc) 10 mg PO DAILY [facility] Carvedilol (Coreg) 6.25 mg PO BID [facility] Last Admin: 04/12/18 09:13 Dose: 6.25 mg Cinacalcet (Sensipar) 60 mg PO ACD [facility] Famotidine (Pepcid) 20 mg PO DAILY [facility] Last Admin: 04/12/18 09:11 Dose: 20 mg Furosemide (Lasix) 80 mg IVP Q12 [facility] Heparin Sodium (Porcine) (Heparin) 5,000 units SC Q8 [facility] Last Admin: 04/12/18 05:55 Dose: 5,000 units Heparin Sodium (Porcine) (Heparin) 2,000 units IVP TTS [facility] Isosorbide Mononitrate (Imdur) 120 mg PO DAILY [facility] Losartan Potassium (Cozaar) 50 mg PO DAILY [facility] Ondansetron HCl (Zofran Tab) 4 mg PO DAILY [facility] Vitamin B Complex/Vit C/Folic Acid (Nephro-Nolan) 1 tab PO 0800 [facility] Results - Vital Signs Recent Vital Signs: Last Vital Signs Temp 97.6 F 04/12/18 07:20 Pulse 52 L 04/12/18 08:15 Resp 20 04/12/18 07:20 BP 162/77 H 04/12/18 07:20 Pulse Ox 94 L 04/12/18 07:20 - Labs Result Diagrams: 04/11/18 16:19 04/11/18 16:19 Labs: Laboratory Results - last 24 hr 04/11/18 04/11/18 04/11/18 16:19 16:19 16:19 WBC 5.4 RBC 3.97 Hgb 10.7 L D Hct 33.6 L MCV 84.6 D MCH 26.9 L MCHC 31.8 L RDW 16.5 H Plt Count 154 MPV 9.9 Neut % (Auto) 66.8 Lymph % (Auto) 25.6 [place] % (Auto) 5.3 Eos % (Auto) 1.8 Baso % (Auto) 0.5 Neut # (Auto) 3.6 Lymph # (Auto) 1.4 [place] # (Auto) 0.3 Eos # (Auto) 0.1 Baso # (Auto) 0.0 D-Dimer, Quantitative Sodium 139 Potassium 5.4 H Chloride 100 Carbon Dioxide 31 H Anion Gap 13 BUN 31 H Creatinine 6.4 H Est GFR ( Amer) 8 Est GFR (Non-Af Amer) 6 Random Glucose 93 Calcium 9.2 Total Bilirubin 1.2 AST 40 H D ALT 21 Alkaline Phosphatase 95 Troponin I 0.0390 NT-Pro-B Natriuret Pep 00886 H Total Protein 7.3 Albumin 4.1 Globulin 3.2 Albumin/Globulin Ratio 1.3 Urine Color Urine Clarity Urine pH Ur Specific [place] Urine Protein Urine Glucose (UA) Urine Ketones Urine Blood Urine Nitrate Urine Bilirubin Urine Urobilinogen Ur Leukocyte Esterase Urine WBC (Auto) Urine RBC (Auto) Ur Squamous Epith Cells Urine Bacteria Influenza Typ A,B (EIA) Negative for flu a/b 04/11/18 04/11/18 17:27 22:06 WBC RBC Hgb Hct MCV MCH MCHC RDW Plt Count MPV Neut % (Auto) Lymph % (Auto) [place] % (Auto) Eos % (Auto) Baso % (Auto) Neut # (Auto) Lymph # (Auto) [place] # (Auto) Eos # (Auto) Baso # (Auto) D-Dimer, Quantitative 238 Sodium Potassium Chloride Carbon Dioxide Anion Gap BUN Creatinine Est GFR ( Amer) Est GFR (Non-Af Amer) Random Glucose Calcium Total Bilirubin AST ALT Alkaline Phosphatase Troponin I NT-Pro-B Natriuret Pep Total Protein Albumin Globulin Albumin/Globulin Ratio Urine Color Yellow Urine Clarity Hazy Urine pH 9.0 Ur Specific [place] 1.008 Urine Protein 2+ H Urine Glucose (UA) 2+ H Urine Ketones Negative Urine Blood 1+ H Urine Nitrate Negative Urine Bilirubin Negative Urine Urobilinogen Normal Ur Leukocyte Esterase 3+ H Urine WBC (Auto) 117 H Urine RBC (Auto) 17 H Ur Squamous Epith Cells 54 H Urine Bacteria Occ H Influenza Typ A,B (EIA)
--- NOTE | 2018-04-12 15:58 | CP.PCM.PN ---
Subjective - Date & Time of Evaluation Date of Evaluation: 04/12/18 Time of Evaluation: 09:00 - Subjective Subjective: clinically same Objective - Vital Signs/Intake and Output Vital Signs (last 24 hours): Temp Pulse Resp BP Pulse Ox 97.6 F 55 L 24 156/84 H 97 04/12/18 13:05 04/12/18 13:05 04/12/18 13:05 04/12/18 14:35 04/12/18 13:05 Intake and Output: 04/12/18 04/12/18 06:59 18:59 Intake Total 350 Balance 350 - Medications Medications: Current Medications Amlodipine Besylate (Norvasc) 10 mg PO DAILY [facility] Last Admin: 04/12/18 12:28 Dose: 10 mg Carvedilol (Coreg) 6.25 mg PO BID [facility] Last Admin: 04/12/18 09:13 Dose: 6.25 mg Cinacalcet (Sensipar) 60 mg PO ACD [facility] Famotidine (Pepcid) 20 mg PO DAILY [facility] Last Admin: 04/12/18 09:11 Dose: 20 mg Furosemide (Lasix) 80 mg IVP Q12 [facility] Last Admin: 04/12/18 10:00 Dose: Not Given Heparin Sodium (Porcine) (Heparin) 5,000 units SC Q8 [facility] Last Admin: 04/12/18 14:00 Dose: Not Given Heparin Sodium (Porcine) (Heparin) 2,000 units IVP TTS [facility] Last Admin: 04/12/18 13:26 Dose: 2,000 units Isosorbide Mononitrate (Imdur) 120 mg PO DAILY [facility] Last Admin: 04/12/18 10:00 Dose: Not Given Losartan Potassium (Cozaar) 50 mg PO DAILY [facility] Last Admin: 04/12/18 12:28 Dose: 50 mg Ondansetron HCl (Zofran Tab) 4 mg PO DAILY [facility] Last Admin: 04/12/18 12:32 Dose: 4 mg Vitamin B Complex/Vit C/Folic Acid (Nephro-Nolan) 1 tab PO 0800 [facility] - Labs Labs: 04/11/18 16:19 04/11/18 16:19 - Constitutional Appears: Well - Head Exam Head Exam: ATRAUMATIC, NORMAL INSPECTION, NORMOCEPHALIC - Eye Exam Eye Exam: EOMI, Normal appearance, PERRL Pupil Exam: NORMAL ACCOMODATION, PERRL - ENT Exam ENT Exam: Mucous Membranes Moist, Normal Exam - Neck Exam Neck Exam: Full ROM, Normal Inspection. absent: Lymphadenopathy - Respiratory Exam Respiratory Exam: Decreased Breath Sounds - Cardiovascular Exam Cardiovascular Exam: REGULAR RHYTHM, +S1, +S2 - GI/Abdominal Exam GI & Abdominal Exam: Soft, Diminished Bowel Sounds - Rectal Exam Rectal Exam: Deferred
--- NOTE | 2018-04-12 18:03 | CT ---
Date of service: 04/12/2018 PROCEDURE: CT Chest without contrast HISTORY: pneumonia COMPARISON: 01/14/2018. CT thorax TECHNIQUE: Contiguous axial images were obtained through the chest without intravenous contrast enhancement. Sagittal and coronal reconstructions were performed. Radiation dose (DLP): 725.37 mGy-cm. This CT exam was performed using one or more of the following dose reduction techniques: Automated exposure control, adjustment of the mA and/or kV according to patient size, and/or use of iterative reconstruction technique. FINDINGS: LUNGS: Progressive alveolar edema with associated interstitial components More confluent findings right lower lobe likely represent compressive atelectasis. MEDIASTINUM: Unremarkable thoracic aorta. No aneurysm. Cardiomegaly/pulmonary vascular congestion. Dilated main pulmonary artery 4.8 cm consistent with pulmonary arterial hypertension no lymphadenopathy. PLEURA: New pleural effusions. BONES: No fracture. No destructive lesion. UPPER ABDOMEN: Grossly unremarkable. Markedly atrophic kidneys consistent with medical renal disease. Multiple renal cysts again identified. OTHER FINDINGS: None. IMPRESSION: Cardiomegaly/cardiogenic pulmonary edema. Pleural effusions represent a new finding compared to the prior study. Findings at the lung bases particularly the right appear to be related to worsening congestive heart failure/pulmonary edema with associated compressive atelectasis from the new right pleural effusion
--- NOTE | 2018-04-12 18:26 | CP.PCM.CON ---
History of Present Illness - History of Present Illness History of Present Illness: 67-year-old female with history of end-stage renal disease, seen in the office for shortness of breath and was found to have saturation in the mid 70s and advised to go to emergency room for evaluation and possible admission. Patient also complaining of cough which is mostly dry. Denies chest pain, denies fever or chills. Review of Systems - Review of Systems All systems: reviewed and no additional remarkable complaints except (hortness of breath) Past Patient History - Infectious Disease Hx of Infectious Diseases: None - Past Medical History & Family History Past Medical History?: Yes - Past Social History Smoking Status: Never Smoked - CARDIAC Hx Congestive Heart Failure: Yes Hx Hypercholesterolemia: Yes Hx Hypertension: Yes - PULMONARY Hx Respiratory Disorders: No - NEUROLOGICAL Hx Neurological Disorder: No - HEENT Hx HEENT Problems: No - RENAL Hx Chronic Kidney Disease: Yes Date of Last Dialysis Treatment: 04/09/18 - ENDOCRINE/METABOLIC Hx Endocrine Disorders: No - HEMATOLOGICAL/ONCOLOGICAL Hx Blood Transfusions: Yes - INTEGUMENTARY Hx Dermatological Problems: No - MUSCULOSKELETAL/RHEUMATOLOGICAL Hx Musculoskeletal Disorders: Yes Hx Falls: Yes (unstable) - GASTROINTESTINAL Hx Gastrointestinal Disorders: No - GENITOURINARY/GYNECOLOGICAL Hx Genitourinary Disorders: No Other/Comment: hd - PSYCHIATRIC Hx Substance Use: No - SURGICAL HISTORY Hx Surgeries: Yes Hx Kidney Transplant: Yes Other/Comment: KIDNEY TRANSPLANT. LEFT ARM AV SHUNT - ANESTHESIA Hx Anesthesia: Yes Hx Anesthesia Reactions: No Hx Malignant Hyperthermia: No Meds Allergies/Adverse Reactions: Allergies Allergy/AdvReac Type Severity Reaction Status Date / Time Penicillins Allergy Severe RASH Verified 04/11/18 15:22 - Medications Medications: Current Medications Amlodipine Besylate (Norvasc) 10 mg PO DAILY [facility] Last Admin: 04/12/18 12:28 Dose: 10 mg Carvedilol (Coreg) 6.25 mg PO BID [facility] Last Admin: 04/12/18 17:36 Dose: 6.25 mg Cinacalcet (Sensipar) 60 mg PO ACD [facility] Last Admin: 04/12/18 17:29 Dose: Not Given Famotidine (Pepcid) 20 mg PO DAILY [facility] Last Admin: 04/12/18 09:11 Dose: 20 mg Furosemide (Lasix) 80 mg IVP Q12 [facility] Last Admin: 04/12/18 10:00 Dose: Not Given Heparin Sodium (Porcine) (Heparin) 5,000 units SC Q8 [facility] Last Admin: 04/12/18 14:00 Dose: Not Given Heparin Sodium (Porcine) (Heparin) 2,000 units IVP TTS [facility] Last Admin: 04/12/18 13:26 Dose: 2,000 units Isosorbide Mononitrate (Imdur) 120 mg PO DAILY [facility] Last Admin: 04/12/18 10:00 Dose: Not Given Losartan Potassium (Cozaar) 50 mg PO DAILY [facility] Last Admin: 04/12/18 12:28 Dose: 50 mg Ondansetron HCl (Zofran Tab) 4 mg PO DAILY [facility] Last Admin: 04/12/18 12:32 Dose: 4 mg Vitamin B Complex/Vit C/Folic Acid (Nephro-Nolan) 1 tab PO 0800 [facility] Physical Exam - Head Exam Head Exam: ATRAUMATIC, NORMOCEPHALIC - ENT Exam ENT Exam: Mucous Membranes Moist - Neck Exam Neck exam: Positive for: Normal Inspection - Respiratory Exam Respiratory Exam: Rales - Cardiovascular Exam Cardiovascular Exam: REGULAR RHYTHM - GI/Abdominal Exam GI & Abdominal Exam: Normal Bowel Sounds Results - Vital Signs Recent Vital Signs: Last Vital Signs Temp 97.7 F 04/12/18 17:28 Pulse 60 04/12/18 18:00 Resp 20 04/12/18 17:28 BP 135/76 04/12/18 17:28 Pulse Ox 95 04/12/18 17:28 - Labs Result Diagrams: 04/11/18 16:19 04/11/18 16:19 Labs: Laboratory Results - last 24 hr 04/11/18 22:06 Urine Color Yellow Urine Clarity Hazy Urine pH 9.0 Ur Specific [place] 1.008 Urine Protein 2+ H Urine Glucose (UA) 2+ H Urine Ketones Negative Urine Blood 1+ H Urine Nitrate Negative Urine Bilirubin Negative Urine Urobilinogen Normal Ur Leukocyte Esterase 3+ H Urine WBC (Auto) 117 H Urine RBC (Auto) 17 H Ur Squamous Epith Cells 54 H Urine Bacteria Occ H Assessment & Plan (1) CHF (congestive heart failure) Status: Acute Comment: CAT scan of the chest consistent with pulmonary edema/infiltrate. Continue hemodialysis. Echocardiogram. Legionella mycoplasma titer (2) ESRD (end stage renal disease) on dialysis Status: Acute (3) Fluid overload Status: Acute
[2018-04-12 18:34] LABS: ABG ALLEN TEST POS; ARTERIAL BLOOD GAS HCO3 29.6 mmol/L (21-28); ARTERIAL BLOOD GAS HEMOGLOBIN 10.2 g/dL (11.7-17.4); ARTERIAL BLOOD GAS O2 SAT 98.2 % (95-98); ARTERIAL BLOOD GAS PCO2 50 mm/Hg (35-45); ARTERIAL BLOOD GAS PH 7.41 (7.35-7.45); ARTERIAL BLOOD GAS PO2 66 mm/Hg (80-100); ARTERIAL BLOOD GAS TCO2 33.2 mmol/L (22-28)
[2018-04-13] MEDS: Multivitamin Vitamin B Complex (Nephro-Vite) Tab PO SCH (08:00)
[2018-04-13 10:22] LABS: BASO % 0.7 % (0.0-2.0); EOS # 0.1 K/uL (0.0-0.7); HEMOGLOBIN 10.5 g/dL (11.0-16.0); LYMPH # 1.1 K/uL (1.0-4.3); LYMPH % 21.6 % (20.0-40.0); MEAN CELL VOLUME 84.4 fL (81.0-99.0); MEAN CORPUSCULAR HEMOGLOBIN 27.5 pg (27.0-31.0); MEAN CORPUSCULAR HGB CONC 32.6 g/dL (33.0-37.0); MEAN PLATELET VOLUME 9.5 fL (7.2-11.7); MONO # 0.2 K/uL (0.0-0.8); MONO % 4.6 % (0.0-10.0); NEUT # 3.4 K/uL (1.8-7.0); NEUT % 70.1 % (50.0-75.0); NRBC % 0.1 % (0.0-2.0); RBC 3.82 Mil/uL (3.80-5.20); RED CELL DISTRIBUTION WIDTH 16.6 % (11.5-14.5); WHITE BLOOD COUNT 4.9 K/uL (4.8-10.8)
[2018-04-13 11:12] LABS: ALB/GLOB RATIO 1.3 (1.0-2.1); ALBUMIN 3.8 g/dL (3.5-5.0); CALCIUM 8.9 mg/dl (8.6-10.4)
--- NOTE | 2018-04-13 12:37 | CARD ---
APPROVED REPORT Date of service: 04/11/2018 EKG Measurement Heart [id number] NM [id number] [id number] <Conclusion> Sinus bradycardia Otherwise normal ECG
--- NOTE | 2018-04-13 14:19 | CARD ---
APPROVED REPORT Date of service: 04/13/2018 EXAM: Two-dimensional and M-mode echocardiogram with Doppler and color Doppler. Other Information Quality : GoodRhythm : INDICATION Pleural Effusion Congestive Heart Failure COPD RISK FACTORS Hypertension Hyperlipidemia Diabetes 2D DIMENSIONS IVSd1.4 (0.7-1.1cm)Aortic Root (2D)2.8 (2.0-3.7cm) LVDd4.7 (3.9-5.9cm)PWd1.3 (0.7-1.1cm) LA Injfaf53 (18-58mL)LVDs3.0 (2.5-4.0cm) FS (%) 36.9 %LVEF (%)66.8 (>50%) LVEF (Moura's)55 %IVC0.00 cm M-Mode DIMENSIONS Left Atrium (MM)5.08 (2.5-4.0cm)IVSd1.25 (0.7-1.1cm) Aortic Root2.34 (2.2-3.7cm)LVDd5.27 (4.0-5.6cm) Aortic Cusp Exc.1.37 (1.5-2.0cm)PWd1.21 (0.7-1.1cm) FS (%) 46 %LVDs2.85 (2.0-3.8cm) LVEF (%)65 (>50%) Aortic Valve AoV Peak Tgmryols124.5cm/sAoV VTI39.8cmAO Peak GR.15mmHg AO Mean GR.6mmHg Mitral Valve MV E Eegjeskt255.2cm/sMV E Peak Gr.120mmHgMV A Xmxokfrz687.5cm/s MV E Mean Gr.77mmHgE/A ratio1.4 TDI Lateral E' Peak V6.03cm/sMedial E' Peak V4.80cm/sE/Lateral E'25.2 E/Medial E'31.7 Tricuspid Valve TR Peak Dvbbbqbw733ho/sTR Peak Gr.06ihMiKQNA24meFs LEFT VENTRICLE The left ventricle is normal size. There is moderate concentric left ventricular hypertrophy. The left ventricular function is normal. The left ventricular ejection fraction is within the normal range, 65% visually No regional wall motion abnormalities noted. Transmitral Doppler flow pattern is Grade II-pseudonormal filling dynamics. A L wave is seen. Tissue doppler is c/w elevated left atrial pressure. No left ventricle thrombus noted on this study. There is no ventricular septal defect visualized. There is no left ventricular aneurysm. There is no mass noted in the left ventricle. RIGHT VENTRICLE The right ventricle is normal size. There is normal right ventricular wall thickness. The right ventricular systolic function is normal. ATRIA The left atial volume index is moderately increased. The right atrium size is normal. The interatrial septum is intact with no evidence for an atrial septal defect. AORTIC VALVE The aortic valve is normal in structure and function. No aortic regurgitation is present. There is no aortic valvular stenosis. There is no aortic valvular vegetation. MITRAL VALVE The mitral valve opens well. There is moderate annnularr calcification. There is no evidence of mitral valve prolapse. There is no mitral valve stenosis. There is mild mitral valve regurgitation noted. TRICUSPID VALVE The tricuspid valve is normal in structure and function. There is mild tricuspid valve regurgitation noted. Estimated PA systolic pressure is 55 mm Hg. There is no tricuspid valve prolapse or vegetation. There is no tricuspid valve stenosis. PULMONIC VALVE The pulmonary valve is normal in structure and function. There is no pulmonic valvular regurgitation. There is no pulmonic valvular stenosis. GREAT VESSELS The aortic root is normal in size. The ascending aorta is normal in size. The pulmonary artery is normal. The IVC is normal in size and collapses >50% with inspiration. PERICARDIAL EFFUSION The pericardium appears normal. There is no pleural effusion. <Conclusion> The left ventricular function is normal. There is moderate concentric left ventricular hypertrophy. Transmitral Doppler flow pattern is Grade II-pseudonormal filling dynamics. An L wave is seen. Tissue doppler is c/w elevated left atrial pressure. The left atial volume index is moderately increased. There is mild mitral valve regurgitation noted. Increased left atrial pressure. Moderate to severe pulmonary HTN.
--- NOTE | 2018-04-13 17:35 | CP.PCM.PN ---
Subjective - Date & Time of Evaluation Date of Evaluation: 04/13/18 Time of Evaluation: 16:00 - Subjective Subjective: patient seen and examined Breathing better Status post hemodialysis again today Afebrile Slight cough CAT scan of the chest consistent with pulmonary edema Objective - Vital Signs/Intake and Output Vital Signs (last 24 hours): Temp Pulse Resp BP Pulse Ox 98.0 F 66 20 160/77 H 98 04/13/18 15:25 04/13/18 15:25 04/13/18 15:25 04/13/18 15:25 04/13/18 15:25 Intake and Output: 04/13/18 04/13/18 06:59 18:59 Intake Total 360 Balance 360 - Medications Medications: Current Medications Amlodipine Besylate (Norvasc) 10 mg PO DAILY [facility] Last Admin: 04/13/18 14:12 Dose: 10 mg Carvedilol (Coreg) 6.25 mg PO BID [facility] Last Admin: 04/13/18 17:10 Dose: 6.25 mg Cinacalcet (Sensipar) 60 mg PO ACD [facility] Last Admin: 04/13/18 17:09 Dose: 60 mg Famotidine (Pepcid) 20 mg PO DAILY [facility] Last Admin: 04/13/18 09:35 Dose: 20 mg Heparin Sodium (Porcine) (Heparin) 5,000 units SC Q8 [facility] Last Admin: 04/13/18 14:20 Dose: 5,000 units Heparin Sodium (Porcine) (Heparin) 2,000 units IVP TTS [facility] Last Admin: 04/12/18 13:26 Dose: 2,000 units Isosorbide Mononitrate (Imdur) 120 mg PO DAILY [facility] Last Admin: 04/13/18 14:13 Dose: 120 mg Losartan Potassium (Cozaar) 50 mg PO DAILY [facility] Last Admin: 04/13/18 14:12 Dose: 50 mg Ondansetron HCl (Zofran Tab) 4 mg PO DAILY [facility] Last Admin: 04/13/18 14:17 Dose: 4 mg Vitamin B Complex/Vit C/Folic Acid (Nephro-Nolan) 1 tab PO 0800 [facility] Last Admin: 04/13/18 08:00 Dose: 1 tab - Labs Labs: 04/13/18 10:16 04/13/18 10:16 - Head Exam Head Exam: ATRAUMATIC, NORMOCEPHALIC - ENT Exam ENT Exam: Mucous Membranes Moist - Neck Exam Neck Exam: Normal Inspection - Respiratory Exam Respiratory Exam: Rales - Cardiovascular Exam Cardiovascular Exam: REGULAR RHYTHM Assessment and Plan (1) CHF (congestive heart failure) Assessment & Plan: Patient advised to decrease fluid intake continue hemodialysis ABG room air Continue present treatment for now Status: Acute (2) ESRD (end stage renal disease) on dialysis Status: Acute (3) Fluid overload Status: Acute
--- NOTE | 2018-04-13 21:11 | CP.PCM.PN ---
Subjective - Date & Time of Evaluation Date of Evaluation: 04/13/18 Time of Evaluation: 09:00 - Subjective Subjective: clinically same Objective - Vital Signs/Intake and Output Vital Signs (last 24 hours): Temp Pulse Resp BP Pulse Ox 98.0 F 63 20 160/77 H 98 04/13/18 15:25 04/13/18 18:00 04/13/18 15:25 04/13/18 15:25 04/13/18 15:25 Intake and Output: 04/13/18 04/14/18 18:59 06:59 Intake Total 360 Balance 360 - Medications Medications: Current Medications Amlodipine Besylate (Norvasc) 10 mg PO DAILY [facility] Last Admin: 04/13/18 14:12 Dose: 10 mg Carvedilol (Coreg) 6.25 mg PO BID [facility] Last Admin: 04/13/18 17:10 Dose: 6.25 mg Cinacalcet (Sensipar) 60 mg PO ACD [facility] Last Admin: 04/13/18 17:09 Dose: 60 mg Famotidine (Pepcid) 20 mg PO DAILY [facility] Last Admin: 04/13/18 09:35 Dose: 20 mg Heparin Sodium (Porcine) (Heparin) 5,000 units SC Q8 [facility] Last Admin: 04/13/18 14:20 Dose: 5,000 units Heparin Sodium (Porcine) (Heparin) 2,000 units IVP TTS [facility] Last Admin: 04/12/18 13:26 Dose: 2,000 units Isosorbide Mononitrate (Imdur) 120 mg PO DAILY [facility] Last Admin: 04/13/18 14:13 Dose: 120 mg Losartan Potassium (Cozaar) 50 mg PO DAILY [facility] Last Admin: 04/13/18 14:12 Dose: 50 mg Ondansetron HCl (Zofran Tab) 4 mg PO DAILY [facility] Last Admin: 04/13/18 14:17 Dose: 4 mg Vitamin B Complex/Vit C/Folic Acid (Nephro-Nolan) 1 tab PO 0800 [facility] Last Admin: 04/13/18 08:00 Dose: 1 tab - Labs Labs: 04/13/18 10:16 04/13/18 10:16
[2018-04-14] MEDS: Multivitamin Vitamin B Complex (Nephro-Vite) Tab PO SCH (08:32)
[2018-04-14 16:01] VITALS: RESP 20
--- NOTE | 2018-04-14 19:46 | CP.PCM.PN ---
Subjective - Date & Time of Evaluation Date of Evaluation: 04/14/18 Time of Evaluation: 08:45 - Subjective Subjective: clinically same Objective - Vital Signs/Intake and Output Vital Signs (last 24 hours): Temp Pulse Resp BP Pulse Ox 98.1 F 72 20 129/74 95 04/14/18 16:00 04/14/18 18:00 04/14/18 16:00 04/14/18 16:00 04/14/18 16:00 Intake and Output: 04/14/18 04/15/18 18:59 06:59 Intake Total 380 Balance 380 - Medications Medications: Current Medications Amlodipine Besylate (Norvasc) 10 mg PO DAILY [facility] Last Admin: 04/14/18 10:00 Dose: Not Given Carvedilol (Coreg) 6.25 mg PO BID [facility] Last Admin: 04/14/18 17:49 Dose: 6.25 mg Cinacalcet (Sensipar) 60 mg PO ACD [facility] Last Admin: 04/14/18 17:30 Dose: 60 mg Famotidine (Pepcid) 20 mg PO DAILY [facility] Last Admin: 04/14/18 14:50 Dose: 20 mg Heparin Sodium (Porcine) (Heparin) 5,000 units SC Q8 [facility] Last Admin: 04/14/18 14:50 Dose: 5,000 units Heparin Sodium (Porcine) (Heparin) 2,000 units IVP TTS [facility] Last Admin: 04/14/18 10:00 Dose: Not Given Isosorbide Mononitrate (Imdur) 120 mg PO DAILY [facility] Last Admin: 04/14/18 14:54 Dose: 120 mg Losartan Potassium (Cozaar) 50 mg PO DAILY [facility] Last Admin: 04/14/18 14:50 Dose: 50 mg Ondansetron HCl (Zofran Tab) 4 mg PO DAILY [facility] Last Admin: 04/14/18 14:50 Dose: 4 mg Vitamin B Complex/Vit C/Folic Acid (Nephro-Nolan) 1 tab PO 0800 [facility] Last Admin: 04/14/18 08:32 Dose: 1 tab - Labs Labs: 04/13/18 10:16 04/13/18 10:16 - Constitutional Appears: Well - Head Exam Head Exam: ATRAUMATIC, NORMAL INSPECTION, NORMOCEPHALIC - Eye Exam Eye Exam: EOMI, Normal appearance, PERRL Pupil Exam: NORMAL ACCOMODATION, PERRL - ENT Exam ENT Exam: Mucous Membranes Moist, Normal Exam - Neck Exam Neck Exam: Full ROM, Normal Inspection. absent: Lymphadenopathy - Respiratory Exam Respiratory Exam: Decreased Breath Sounds - Cardiovascular Exam Cardiovascular Exam: REGULAR RHYTHM, +S1, +S2 - GI/Abdominal Exam GI & Abdominal Exam: Soft, Diminished Bowel Sounds - Rectal Exam Rectal Exam: Deferred
[2018-04-15] MEDS: Multivitamin Vitamin B Complex (Nephro-Vite) Tab PO SCH (07:49)
--- NOTE | 2018-04-15 14:03 | CP.PCM.PN ---
Subjective - Date & Time of Evaluation Date of Evaluation: 04/15/18 Time of Evaluation: 10:00 - Subjective Subjective: clinically same Objective - Vital Signs/Intake and Output Vital Signs (last 24 hours): Temp Pulse Resp BP Pulse Ox 98.0 F 57 L 20 133/75 95 04/15/18 07:00 04/15/18 11:50 04/15/18 07:00 04/15/18 07:00 04/15/18 07:00 Intake and Output: 04/15/18 04/15/18 06:59 18:59 Intake Total 480 Balance 480 - Medications Medications: Current Medications Amlodipine Besylate (Norvasc) 10 mg PO DAILY [facility] Last Admin: 04/15/18 09:08 Dose: 10 mg Carvedilol (Coreg) 6.25 mg PO BID [facility] Last Admin: 04/15/18 09:08 Dose: 6.25 mg Cinacalcet (Sensipar) 60 mg PO ACD [facility] Last Admin: 04/14/18 17:30 Dose: 60 mg Famotidine (Pepcid) 20 mg PO DAILY [facility] Last Admin: 04/15/18 09:09 Dose: 20 mg Heparin Sodium (Porcine) (Heparin) 2,000 units IVP TTS [facility] Last Admin: 04/14/18 10:00 Dose: Not Given Isosorbide Mononitrate (Imdur) 120 mg PO DAILY [facility] Last Admin: 04/15/18 09:09 Dose: 120 mg Losartan Potassium (Cozaar) 50 mg PO DAILY [facility] Last Admin: 04/15/18 09:09 Dose: 50 mg Ondansetron HCl (Zofran Tab) 4 mg PO DAILY [facility] Last Admin: 04/15/18 09:08 Dose: 4 mg Vitamin B Complex/Vit C/Folic Acid (Nephro-Nolan) 1 tab PO 0800 [facility] Last Admin: 04/15/18 07:49 Dose: 1 tab - Labs Labs: 04/13/18 10:16 04/13/18 10:16 - Constitutional Appears: Well - Head Exam Head Exam: ATRAUMATIC, NORMAL INSPECTION, NORMOCEPHALIC - Eye Exam Eye Exam: EOMI, Normal appearance, PERRL Pupil Exam: NORMAL ACCOMODATION, PERRL - ENT Exam ENT Exam: Mucous Membranes Moist, Normal Exam - Neck Exam Neck Exam: Full ROM, Normal Inspection. absent: Lymphadenopathy - Respiratory Exam Respiratory Exam: Decreased Breath Sounds - Cardiovascular Exam Cardiovascular Exam: REGULAR RHYTHM, +S1, +S2 - GI/Abdominal Exam GI & Abdominal Exam: Soft, Diminished Bowel Sounds - Rectal Exam Rectal Exam: Deferred
--- NOTE | 2018-04-15 15:39 | PCM.HF ---
Heart Failure Core Measure - Heart Failure Ejection Fraction: 40 % or Greater MARTA Inhibitor Prescribed: No Contraindication/Reason for not providing: on arb Beta-Behzad Prescribed: Carvedilol Angiotensin II Receptor Behzad Prescribed: Yes AnticoagulationTherapy for Atrial Fibrillation/Atrialflutter: No Contraindication/Reason for not providing: no hx of a fib Aldosterone Antagonist Prescribed: No Contraindication/Reason for not providing: esrd Hydralazine Nitrate Prescribed: No Contraindication/Reason for not providing: ef>45 - Follow up Will be discharged to: Home Follow Up Date (must be within 7 days from discharge): 04/18/18
--- NOTE | 2018-04-15 15:47 | CP.PCM.PN ---
Subjective - Date & Time of Evaluation Date of Evaluation: 04/15/18 Time of Evaluation: 14:00 - Subjective Subjective: IT SERVICE TECHNICIAN NOTES Patient seen today , awake, alert, ox3 sitting up in bed , denies any chest pain,sob, headache, abdominal pain, N/V/d a febrile seen by Dr. Donnie chinchilla today, cleared for discharge home today and f/u with his office on Wednesday discharge plan discussed with son at bed андрей e SW will contact HD center for resume HD as scheduled out patient Objective - Vital Signs/Intake and Output Vital Signs (last 24 hours): Temp Pulse Resp BP Pulse Ox 98.0 F 56 L 20 133/75 98 04/15/18 07:00 04/15/18 14:03 04/15/18 07:00 04/15/18 07:00 04/15/18 14:03 Intake and Output: 04/15/18 04/15/18 06:59 18:59 Intake Total 480 Balance 480 - Medications Medications: Current Medications Amlodipine Besylate (Norvasc) 10 mg PO DAILY [facility] Last Admin: 04/15/18 09:08 Dose: 10 mg Carvedilol (Coreg) 6.25 mg PO BID [facility] Last Admin: 04/15/18 09:08 Dose: 6.25 mg Cinacalcet (Sensipar) 60 mg PO ACD [facility] Last Admin: 04/14/18 17:30 Dose: 60 mg Famotidine (Pepcid) 20 mg PO DAILY [facility] Last Admin: 04/15/18 09:09 Dose: 20 mg Heparin Sodium (Porcine) (Heparin) 2,000 units IVP TTS [facility] Last Admin: 04/14/18 10:00 Dose: Not Given Isosorbide Mononitrate (Imdur) 120 mg PO DAILY [facility] Last Admin: 04/15/18 09:09 Dose: 120 mg Losartan Potassium (Cozaar) 50 mg PO DAILY [facility] Last Admin: 04/15/18 09:09 Dose: 50 mg Ondansetron HCl (Zofran Tab) 4 mg PO DAILY [facility] Last Admin: 04/15/18 09:08 Dose: 4 mg Vitamin B Complex/Vit C/Folic Acid (Nephro-Nolan) 1 tab PO 0800 [facility] Last Admin: 04/15/18 07:49 Dose: 1 tab - Labs Labs: 04/13/18 10:16 04/13/18 10:16 Assessment and Plan - Assessment and Plan (Free Text) Assessment: A/P
[2018-04-15 15:54] LABS: ABG ALLEN TEST POS; ARTERIAL BLOOD GAS HCO3 29.8 mmol/L (21-28); ARTERIAL BLOOD GAS HEMOGLOBIN 11.2 g/dL (11.7-17.4); ARTERIAL BLOOD GAS O2 SAT 91.5 % (95-98); ARTERIAL BLOOD GAS PCO2 45 mm/Hg (35-45); ARTERIAL BLOOD GAS PH 7.45 (7.35-7.45); ARTERIAL BLOOD GAS PO2 50 mm/Hg (80-100); ARTERIAL BLOOD GAS TCO2 32.7 mmol/L (22-28)
[2018-04-15 16:07] VITALS: BP 145/76; PULSE 59; TEMP 97.5; O2SAT 95
== END 2018-04-15 17:28 | disposition home or self-care (01) | DRG 291 ==
LOC: C.ER 15:09 → C.9E 17:56 → C.5S 19:15
PROVIDERS: ADMIT Internal Medicine Nephrology; ATTEND Internal Medicine Nephrology
PROC: 5A1D70Z Performance of Urinary Filtration, Intermittent, Less than 6 Hours Per Day (ICD-10-PCS; principal; 2018-04-14)
DX: I13.2 Hypertensive heart and chronic kidney disease with heart failure and with stage 5 chronic kidney disease, or end stage renal disease (principal); I50.31 Acute diastolic (congestive) heart failure; N18.6 End stage renal disease; J96.01 Acute respiratory failure with hypoxia; N25.81 Secondary hyperparathyroidism of renal origin; T86.12 Kidney transplant failure; I27.20 Pulmonary hypertension, unspecified; E78.00 Pure hypercholesterolemia, unspecified; Z99.2 Dependence on renal dialysis; Z88.0 Allergy status to penicillin; E83.39 Other disorders of phosphorus metabolism; D64.9 Anemia, unspecified; Y83.0 Surgical operation with transplant of whole organ as the cause of abnormal reaction of the patient, or of later complication, without mention of misadventure at the time of the procedure

== ENCOUNTER 2018-10-06 15:10 | Emergency (ER) | payer MEDICARE, OTHER ==
[2018-10-06 15:11] VITALS: BMI 28.6
[2018-10-06 15:57] LABS: BASO % 0.5 % (0.0-2.0); EOS # 0.1 K/uL (0.0-0.7); EOS % 1.9 % (0.0-4.0); HEMOGLOBIN 11.7 g/dL (11.0-16.0); LYMPH # 1.1 K/uL (1.0-4.3); LYMPH % 26.7 % (20.0-40.0); MEAN CELL VOLUME 84.8 fL (81.0-99.0); MEAN CORPUSCULAR HEMOGLOBIN 27.2 pg (27.0-31.0); MEAN CORPUSCULAR HGB CONC 32.1 g/dL (33.0-37.0); MEAN PLATELET VOLUME 9.7 fL (7.2-11.7); MONO # 0.2 K/uL (0.0-0.8); MONO % 5.6 % (0.0-10.0); NEUT # 2.8 K/uL (1.8-7.0); NEUT % 65.3 % (50.0-75.0); RBC 4.3 Mil/uL (3.80-5.20); RED CELL DISTRIBUTION WIDTH 16.5 % (11.5-14.5); WHITE BLOOD COUNT 4.2 K/uL (4.8-10.8)
[2018-10-06 16:08] LABS: INR 1.1; PROTHROMBIN TIME 11.7 SECONDS (9.7-12.2)
[2018-10-06 16:27] LABS: ALB/GLOB RATIO 1.2 (1.0-2.1); ALBUMIN 4.4 g/dL (3.5-5.0); BLOOD UREA NITROGEN 11 mg/dL (7-17); CALCIUM 9.3 mg/dl (8.6-10.4); GFR NON-AFRICAN AMERICAN 13
[2018-10-06 16:28] LABS: ALT/SGPT < 6 U/L (9-52); AST/SGOT 31 U/L (14-36)
--- NOTE | 2018-10-06 16:56 | C.PDOC ---
History Of Present Illness 68 year old female brought via BLS with complaint of bleeding from her fistula on her left upper arm after dialysis. EMS applied tourniquet-like device to the affected area and stopped bleeding. Patient has no other physical complaints. Time Seen by Provider: 10/06/18 15:32 Chief Complaint (Nursing): Abnormal Skin Integrity History Per: Patient History/Exam Limitations: no limitations Onset/Duration Of Symptoms: Hrs Current Symptoms Are (Timing): Still Present Location Of Injury: Left: Arm (bleeding from fistula at the upper arm) Past Medical History Reviewed: Historical Data, Nursing Documentation, Vital Signs Vital Signs: Last Vital Signs Temp 97.9 F 10/06/18 15:31 Pulse 70 10/06/18 15:31 Resp 18 10/06/18 15:31 BP 173/89 H 10/06/18 15:31 Pulse Ox 100 10/06/18 15:31 - Medical History PMH: CHF, HTN, Hypercholesterolemia, End Stage Renal Disease (on hemodialysis), Chronic Kidney Disease Surgical History: No Surg Hx - [facility] Procedures (04/11/18) ASSISTANCE WITH RESPIRATORY VENTILATION, 24-96 HRS, CPAP (01/11/18) ASSISTANCE WITH RESPIRATORY VENTILATION, <24 HRS, CPAP (09/30/15) PERFORMANCE OF URINARY FILTRATION, SINGLE (09/30/15) Family History: States: Unknown Family Hx - Social History Hx Tobacco Use: No Hx Alcohol Use: No Hx Substance Use: No - Immunization History Hx Tetanus Toxoid Vaccination: Yes Hx Influenza Vaccination: Yes Hx Pneumococcal Vaccination: Yes Review Of Systems Constitutional: Negative for: Fever, Chills, Weakness Musculoskeletal: Positive for: Arm Pain (bleeding from fistula on the left upper arm) Neurological: Negative for: Weakness, Numbness, Dizziness Physical Exam - Physical Exam Appears: Non-toxic, No Acute Distress Skin: Normal Color, Warm, Dry Head: Atraumatic, Normacephalic Neck: Normal ROM, Supple Chest: Symmetrical, No Deformity Cardiovascular: Rhythm Regular, No Murmur Respiratory: No Accessory Muscle Use Gastrointestinal/Abdominal: Soft, No Tenderness Extremity: Other (active,pulsating blood from fistula on the left upper extremity) Neurological/Psych: Oriented x3, Normal Speech, Normal Cognition ED Course And Treatment - Laboratory Results Result Diagrams: 10/06/18 18:40 10/06/18 15:51 Lab Results: PT 11.7 SECONDS (9.7-12.2) 10/06/18 15:51 INR 1.1 10/06/18 15:51 APTT 38 SECONDS (21-34) H 10/06/18 15:51 Total Bilirubin 1.2 mg/dL (0.2-1.3) 10/06/18 15:51 AST 31 U/L (14-36) 10/06/18 15:51 ALT < 6 U/L (9-52) L D 10/06/18 15:51 Alkaline Phosphatase 116 U/L (38-126) 10/06/18 15:51 Total Protein 8.0 g/dL (6.3-8.3) 10/06/18 15:51 Albumin 4.4 g/dL (3.5-5.0) 10/06/18 15:51 Globulin 3.6 gm/dL (2.2-3.9) 10/06/18 15:51 Albumin/Globulin Ratio 1.2 (1.0-2.1) 10/06/18 15:51 O2 Sat by Pulse Oximetry: 100 (in RA) Medical Decision Making Medical Decision Making: Impression: 68 year old female brought via BLS with complaint of bleeding from her fistula on her left upper arm after dialysis Plan: Labs ordered with type and screen, CMP, and CBC. 1905 pt with repeat cbc with no decrease. no active bleeding since wound sutured by surgery. d/c home. Disposition Counseled Patient/Family Regarding: Studies Performed, Diagnosis, Need For Followup - Disposition Referrals: Ed Bartlett MD [Staff Provider] - Disposition: HOME/ ROUTINE Disposition Time: 19:08 Condition: GOOD Additional Instructions: Keep bandage on until tomorrow. Follow up with Dr Bartlett tomorrow. Return t ER for any worsening symptoms. Instructions: Arteriovenous Fistula for Dialysis (DC) Forms: [facility] ([place]) - Clinical Impression Clinical Impression: Hemorrhage of surgically-created arteriovenous fistula - PA / TURN DOWN ATTENDANT / Resident Statement MD/DO has reviewed & agrees with the documentation as recorded. (Norma Obando) - Scribe Statement The provider has reviewed the documentation as recorded by the Scribe (Norma Obando) All medical record entries made by the Scribe were at my direction and personally dictated by me. I have reviewed the chart and agree that the record accurately reflects my personal performance of the history, physical exam, medical decision making, and the department course for this patient. I have also personally directed, reviewed, and agree with the discharge instructions and disposition.
--- NOTE | 2018-10-06 18:41 | CP.PCM.CON ---
History of Present Illness - History of Present Illness History of Present Illness: SURGERY CONSULT NOTE FOR DR. GARCIA Reason: Bleeding AVF 68F presents to ER from dialysis with bleeding puncture site. She denies any dizziness or lightheadedness. She states the bleeding has been continuous since the dialysis. PMH: CHF, HTN, Hypercholesterolemia, End Stage Renal Disease (on hemodialysis), Chronic Kidney Disease PSH: Left AVF 10 years ago. Past Patient History - Infectious Disease Hx of Infectious Diseases: None - Past Medical History & Family History Past Medical History?: Yes - Past Social History Smoking Status: Never Smoked - CARDIAC Hx Congestive Heart Failure: Yes Hx Hypercholesterolemia: Yes Hx Hypertension: Yes - PULMONARY Hx Respiratory Disorders: No - NEUROLOGICAL Hx Neurological Disorder: No - HEENT Hx HEENT Problems: No - RENAL Hx Chronic Kidney Disease: Yes - ENDOCRINE/METABOLIC Hx Endocrine Disorders: No - HEMATOLOGICAL/ONCOLOGICAL Hx Blood Transfusions: Yes - INTEGUMENTARY Hx Dermatological Problems: No - MUSCULOSKELETAL/RHEUMATOLOGICAL Hx Musculoskeletal Disorders: Yes Hx Falls: Yes (unstable) - GASTROINTESTINAL Hx Gastrointestinal Disorders: No - GENITOURINARY/GYNECOLOGICAL Hx Genitourinary Disorders: No Other/Comment: hd - PSYCHIATRIC Hx Substance Use: No - SURGICAL HISTORY Hx Surgeries: Yes Hx Kidney Transplant: Yes Other/Comment: KIDNEY TRANSPLANT. LEFT ARM AV SHUNT - ANESTHESIA Hx Anesthesia: Yes Hx Anesthesia Reactions: No Hx Malignant Hyperthermia: No Meds Allergies/Adverse Reactions: Allergies Allergy/AdvReac Type Severity Reaction Status Date / Time Penicillins Allergy Severe RASH Verified 04/11/18 15:22 Physical Exam - Constitutional Appears: Non-toxic, No Acute Distress - Eye Exam Eye Exam: EOMI, PERRL - ENT Exam ENT Exam: Mucous Membranes Moist - Respiratory Exam Respiratory Exam: Clear to Auscultation Bilateral, NORMAL BREATHING PATTERN - Cardiovascular Exam Cardiovascular Exam: REGULAR RHYTHM, +S1, +S2 - GI/Abdominal Exam GI & Abdominal Exam: Soft. absent: Distended, Firm, Guarding, Rebound, Rigid, Tenderness - Extremities Exam Extremities exam: Negative for: pedal edema, tenderness Additional comments: Left arm bleeding AVF, Puncture site continuous projecting bleed - Neurological Exam Neurological exam: Alert, Oriented x3 - Psychiatric Exam Psychiatric exam: Normal Affect, Normal Mood - Skin Skin Exam: Dry, Intact, Normal Color, Warm Results - Vital Signs Recent Vital Signs: Last Vital Signs Temp 98.2 F 10/06/18 17:13 Pulse 70 10/06/18 17:13 Resp 20 10/06/18 17:13 BP 195/82 H 10/06/18 17:13 Pulse Ox 98 10/06/18 17:13 - Labs Result Diagrams: 10/06/18 15:51 10/06/18 15:51 Labs: Laboratory Results - last 24 hr 10/06/18 10/06/18 10/06/18 15:51 15:51 15:51 WBC 4.2 L RBC 4.30 Hgb 11.7 Hct 36.4 MCV 84.8 MCH 27.2 MCHC 32.1 L RDW 16.5 H Plt Count 144 MPV 9.7 Neut % (Auto) 65.3 Lymph % (Auto) 26.7 Kern % (Auto) 5.6 Eos % (Auto) 1.9 Baso % (Auto) 0.5 Neut # (Auto) 2.8 Lymph # (Auto) 1.1 Kern # (Auto) 0.2 Eos # (Auto) 0.1 Baso # (Auto) 0.0 PT 11.7 INR 1.1 APTT 38 H Sodium 136 Potassium 3.6 Chloride 92 L Carbon Dioxide 35 H Anion Gap 12 BUN 11 Creatinine 3.5 H Est GFR ( Amer) 16 Est GFR (Non-Af Amer) 13 Random Glucose 90 Calcium 9.3 Total Bilirubin 1.2 AST 31 ALT < 6 L D Alkaline Phosphatase 116 Total Protein 8.0 Albumin 4.4 Globulin 3.6 Albumin/Globulin Ratio 1.2 Blood Type Antibody Screen 10/06/18 16:17 WBC RBC Hgb Hct MCV MCH MCHC RDW Plt Count MPV Neut % (Auto) Lymph % (Auto) Kern % (Auto) Eos % (Auto) Baso % (Auto) Neut # (Auto) Lymph # (Auto) Kern # (Auto) Eos # (Auto) Baso # (Auto) PT INR APTT Sodium Potassium Chloride Carbon Dioxide Anion Gap BUN Creatinine Est GFR ( Amer) Est GFR (Non-Af Amer) Random Glucose Calcium Total Bilirubin AST ALT Alkaline Phosphatase Total Protein Albumin Globulin Albumin/Globulin Ratio Blood Type B POSITIVE Antibody Screen Negative Assessment & Plan - Assessment and Plan (Free Text) Assessment: 68F with left AVF bleeding puncture site Plan: - Placed a figure of 8 stitch with 6-0 prolene, Bleeding controlled Further recs discuss with Dr. Sher Sullivan, PGY3
[2018-10-06 18:46] LABS: BASO % 0.6 % (0.0-2.0); EOS % 0.7 % (0.0-4.0); HEMOGLOBIN 11.3 g/dL (11.0-16.0); LYMPH % 15.2 % (20.0-40.0); MEAN CELL VOLUME 84.9 fL (81.0-99.0); MEAN CORPUSCULAR HEMOGLOBIN 27.2 pg (27.0-31.0); MEAN CORPUSCULAR HGB CONC 32.1 g/dL (33.0-37.0); MEAN PLATELET VOLUME 9.3 fL (7.2-11.7); MONO # 0.5 K/uL (0.0-0.8); MONO % 7.5 % (0.0-10.0); NEUT # 4.9 K/uL (1.8-7.0); RBC 4.15 Mil/uL (3.80-5.20); RED CELL DISTRIBUTION WIDTH 16.4 % (11.5-14.5); WHITE BLOOD COUNT 6.4 K/uL (4.8-10.8)
[2018-10-06 22:28] VITALS: BP 179/83; PULSE 81; RESP 17; TEMP 98.3; O2SAT 99
== END 2018-10-06 22:28 | disposition home or self-care (01) ==
LOC: C.ER 15:10
DX: T82.838A Hemorrhage due to vascular prosthetic devices, implants and grafts, initial encounter (principal); I12.0 Hypertensive chronic kidney disease with stage 5 chronic kidney disease or end stage renal disease; N18.6 End stage renal disease; Z99.2 Dependence on renal dialysis; E78.00 Pure hypercholesterolemia, unspecified; I50.9 Heart failure, unspecified